=== PATIENT | female | born 1945 | race Caucasian/White ===

== ENCOUNTER 2017-01-26 23:00 | Inpatient (IN) | payer MEDICARE, OTHER ==
--- NOTE | ~2017-01-26 | HP ---
History And Physical [address] [place]. [address] NAME: CASIMIRO DESOUZA : 41 STATUS : REG ER PAT#: [id number] AGE: 71 ADM/REG DATE : 01/26/17 MR#: [id number] REPORT SERV DATE: 01/27/17 DICTATED BY: WARREN BILLINGSLEY DATE: 01/27/17 REPORT STATUS : Draft TRANSCRIBED BY: KAVYA DATE: 01/27/17 DATE OF ADMISSION: 01/26/2017 DICTATION ENDS HERE.... ANIVAL/KAVYA Warren Billingsley M.D. / [id number] CC: Lakisha Rhoades M.D.
--- NOTE | ~2017-01-26 | HP ---
History And Physical [place] [address] [place]. [address] NAME: CASIMIRO DESOUZA : 41 STATUS : ADM [place] PAT#: [id number] AGE: 71 ADM/REG DATE : 01/27/17 MR#: [id number] REPORT SERV DATE: 01/27/17 DICTATED BY: WARREN ARIZMENDI DATE: 01/27/17 REPORT STATUS : Draft TRANSCRIBED BY: KAVYA DATE: 01/27/17 DATE OF ADMISSION: 01/26/2017 CHIEF COMPLAINT: Falls. HISTORY OF PRESENT ILLNESS: The patient is a very pleasant, 71-year-old white female. She states that over the last 24 hours she has been generally weak. She had three falls, the last one she simply slid out of bed. She states her knees became sore and she was unable to rise independently. She states normally she cannot get off the floor. She called EMS several times. The first 2 times they helped her up. The third time they brought her to the hospital. She denies fevers or chills. She states she has had some moderate back pain since she fell the first time and also some upper back pain since she fell. She does suffer from fibromyalgia and chronic pain. She has not noticed dysuria. She has not had a significant cough although she has a slight cough which is new. She has had no chest pain. No real shortness of breath. She has chronic lower extremity edema from lymphedema which seems to be very similar to the past. She has had no nausea or vomiting. She does have intermittent diarrhea but that is also chronic. PAST MEDICAL HISTORY: 1. Atrial fibrillation with recent admission for CHF and AFib RVR. 2. Morbid obesity. 3. Hypertension. 4. Irritable bowel. 5. RONNELL, probable. 6. Lymphedema. 7. Hyperlipidemia. 8. Abnormal PPD. 9. Uterine cancer, history of hysterectomy. 10.Nephrolithiasis, asymptomatic. 11.GERD. 12.Colitis. 13.Fibromyalgia. 14.Depression. 15.Anxiety. 16.Chronic pain. 17.Raynaud's. SOCIAL HISTORY: She does not smoke or drink. She lives alone. She ambulates with a walker and lives independently. She is a retired nurse. She does not use tobacco or alcohol. FAMILY HISTORY: Mom had a CVA and dementia. Her father had prostate cancer. ALLERGIES: PENICILLIN, DEMEROL, SULFA, ULTRAM, AND ZOLOFT. SURGICAL HISTORY: 1. Partial colectomy. History And Physical [address] [address] NAME: CASIMIRO DESOUZA : 41 STATUS : ADM [place] PAT#: [id number] AGE: 71 ADM/REG DATE : 01/27/17 MR#: [id number] REPORT SERV DATE: 01/27/17 DICTATED BY: WARREN ARIZMENDI DATE: 01/27/17 REPORT STATUS : Draft TRANSCRIBED BY: KAVYA DATE: 01/27/17 2. Hysterectomy. 3. Oophorectomy. 4. Adhesiolysis. 5. Inguinal hernia repair. 6. Abdominal wall abscess surgery. REVIEW OF SYSTEMS: Full 10-point review of systems obtained. Pertinent positives already mentioned in the HPI. PHYSICAL EXAMINATION: VITAL SIGNS: Current sats are 98% on 2 L. BP 144/81, temperature 97.7, pulse 74, respiratory rate 24. GENERAL: Morbidly obese white female HEENT: Normocephalic, atraumatic. Throat is clear. NECK: Supple. HEART: Regular rate and rhythm. LUNGS: Grossly clear but diminished at the bases. ABDOMEN: Soft, nontender, nondistended. She has a couple of little blisters on her abdominal wall. She states she has been treated for this by rn outpatient surgery. These are improving. There is no surrounding erythema. Abdomen is otherwise soft, nontender, nondistended. EXTREMITIES: Warm and dry. She has 2+ pulses at the feet. She has swelling of the lower extremities which is a bit asymmetrical as she has had compression hose only pulled up to her ankles and so there is some more distal edema than proximal. SKIN: Otherwise intact. NEURO: She is alert. She is oriented to person, place, and time. She is generally weak in all four extremities but they are symmetrical. Speech is intact. Cranial nerves II through XII are intact. LABORATORY AND X-RAY: H and H 13 and 40, white count 9, platelets are 215. Coags, INR is 2. Chemistry panel is essentially normal. Troponin is 0.02. Urinalysis shows 16 white cells, 8 red cells, and moderate leukocyte esterase. Chest x-ray shows cardiomegaly and her lumbar spine CT shows what looks like compression deformity of T12 which is increased from 06/24. She has a compression deformity of L5 which is unchanged from prior studies. She also has moderate spinal stenosis at L3 through L5. EKG shows AFib, rate controlled with left axis deviation. ASSESSMENT/PLAN: 1. Urinary tract infection. This could have precipitated her weakness and falls. We will treat with Rocephin 1 g daily. Culture her urine. I went back through to see some previous cultures. She had Enterococcus faecium in 2015. It was only sensitive to vanc. Her previous E. coli was sensitive to cephalosporins. I think it is reasonable given that she only has 16 whites in her urine to cover her with Rocephin 1 g daily and follow up on cultures. She is afebrile and does not have a white count, does not look particularly ill, and then we will go from there. 2. Multiple falls likely secondary to generalized weakness and probable urinary tract History And Physical [address] [address] NAME: CASIMIRO DESOUZA : 41 STATUS : ADM [place] PAT#: [id number] AGE: 71 ADM/REG DATE : 01/27/17 MR#: [id number] REPORT SERV DATE: 01/27/17 DICTATED BY: WARREN ARIZMENDI DATE: 01/27/17 REPORT STATUS : Draft TRANSCRIBED BY: KAVYA DATE: 01/27/17 infection; however, she is prone to falls and required rehab after her last hospital stay. She was just here at the end of November with atrial fibrillation rapid ventricular rate and then went to rehab. She was only there for three weeks before she returned. I suspect her morbid obesity, her fibromyalgia, chronic pain, and use of medications is likely also contributing. We will have PT see her in consultation. She may again need a short rehab stay. 3. Back pain since falling. She does have multiple compression fractures. They do not appear to be acute except for the one at T11, may have had an increase in the amount of compression. I am going to do an MRI of her back to re-evaluate things and then we will go from there. We will provide pain medications. 4. Atrial fibrillation, currently rate controlled. We will continue her anticoagulation. I am still awaiting her pharmacy list and her home medication list. 5. History of obesity, needs weight loss. 6. Probable obstructive sleep apnea, still awaiting sleep study. Nocturnal O2 will be used. 7. Lymphedema, chronic. We will have better compression hose placed on the patient while she is here. 8. Fibromyalgia and chronic pain. Continue pain medications. 9. Deep venous thrombosis prophylaxis. She is already on warfarin. We will continue with daily PT, INRs. 10.Disposition. Pending above aforementioned plan and workup. ANIVAL/KAVYA Warren Arizmendi M.D. / [id number] CC: Hanna Antoine M.D.
--- NOTE | ~2017-01-26 | IDS ---
Interim Discharge Summary [facility] [address] [place]. [address] NAME: CASIMIRO DESOUZA : 41 STATUS : ADM IN [facility]#: [id number] AGE: 71 ADM/REG DATE : 01/28/17 MR#: [id number] REPORT SERV DATE: 02/02/17 DICTATED BY: GERONIMO VAUGHAN DATE: 02/01/17 REPORT STATUS : Draft TRANSCRIBED BY: MODL DATE: 02/01/17 ADMISSION DATE: 01/28/2017 DISCHARGE DATE: DIAGNOSES: 1. Acute T6 and T8 compression fracture. 2. Atrial fibrillation, normal sinus rhythm. On heparin GTT. Restart Coumadin after kyphoplasty. 3. History of congestive heart failure. 4. Hypertension. 5. Chronic lymphedema. 6. Multiple falls. Evaluated by PT, being evaluated by [facility] for rehab. Acute rehab on discharge. 7. Chronic pain. 8. Fibromyalgia. 9. Obstructive sleep apnea. Continue nocturnal oxygen. 10.Hypothyroidism. HOSPITAL COURSE: The patient was admitted for further management after a fall that the patient was shown to have acute T6 and T8 compression fracture. Pain was appropriately controlled. The patient was evaluated by Orthopedics. Further details per Ortho note. Recommended the kyphoplasty, which the patient was in agreement with. Coumadin was discontinued. Interventional Radiology wanted the patient to be off Coumadin five days, specifically prior to procedure. They have the patient scheduled for kyphoplasty on 02/03/2017. Once INR level was less than 2, heparin GTT was started for secondary prevention of atrial fibrillation. Further management per clinical course. CE/KAVYA Nick Gastelum MD / [id number] CC: Nick Gastelum MD
--- NOTE | ~2017-01-26 | CN ---
Consultation Report [facility] [address] [place]. [address] NAME: CASIMIRO DESOUZA : 41 STATUS : ADM [place] PAT#: [id number] AGE: 71 ADM/REG DATE : 01/27/17 MR#: [id number] REPORT SERV DATE: 01/29/17 DICTATED BY: PAOLA HURST II DATE: 01/29/17 REPORT STATUS : Draft TRANSCRIBED BY: KAVYA DATE: 01/29/17 DATE OF CONSULTATION: CHIEF COMPLAINT: Thoracic pain. HISTORY OF PRESENT ILLNESS: 71-year-old female who reports severe thoracic pain after falling recently. She denies any bowel or bladder changes or weakness in her legs. She is taking pain medications. She was admitted for pain control. PAST MEDICAL HISTORY: Reveals a history of breast biopsy, hysterectomy, kidney stones, history of tonsillectomy, history of hypertension, cholesterol, atrial fibrillation, hypothyroidism, bronchitis, COPD, asthma, history carpal tunnel, depression, and a history of irritable bowel syndrome, partial colectomy, and cholecystectomy, history of bilateral knee surgery, history of fibromyalgia. REVIEW OF SYSTEMS: Please see the ER triage sheet dated 01/26/2017, I have reviewed and agree with it. PHYSICAL EXAMINATION: GENERAL: Reveals a female, in no distress. She is awake, alert, and oriented. CHEST: Reveals no stridor on inspiration or expiration. CARDIOVASCULAR: Regular rate and rhythm when I palpate the radial pulse. ABDOMEN: Abdomen is obese. She has a positive percussion test in the thoracic area. PSYCHIATRIC: Reveals no agitation nor confusion. Imaging reveals T6 and T8 compression fracture. IMPRESSION AND PLAN: A 71-year-old female with morbid obesity who reports severe thoracic spine pain. She also has a history of fibromyalgia. I have given her the options of observation versus bracing versus kyphoplasty. She is not very ideal bracing candidate given her obesity and habitus. Regarding kyphoplasty, it is a reasonable option; however, she has taken her Coumadin recently. We will go ahead and have Physical Therapy evaluate her immobilizer as overall I believe the fractures are stable although painful. We will see how she does with therapy. We will go ahead and get a rehab consult as she lives alone. As needed, we will proceed with the kyphoplasty. JOSÉ MANUEL/KAVYA Paola Hurst II, M.D. / [id number]
--- NOTE | ~2017-01-26 | DS ---
Discharge Summary [place] [place]. [address] NAME: CASIMIRO DESOUZA : 41 STATUS : DIS IN PAT#: [id number] AGE: 71 ADM/REG DATE : 01/28/17 MR#: [id number] REPORT SERV DATE: 02/06/17 DICTATED BY: SUYAPA LUGO DATE: 02/05/17 REPORT STATUS : Draft TRANSCRIBED BY: MODEbony DATE: 02/05/17 ADMISSION DATE: 01/28/2017 DISCHARGE DATE: 02/05/2017 The patient was admitted to the Hospitalist Service. CONSULTANTS: German Rhoades M.D., Orthopedics. DISCHARGE DIAGNOSES: 1. Acute T6 and T8 compression fracture. 2. Atrial fibrillation, chronic. 3. Hypertension. 4. Chronic pain. 5. Fibromyalgia. 6. Obstructive sleep apnea with nocturnal oxygen. 7. Multiple falls. 8. Hypothyroidism. 9. Hyperlipidemia. 10.History of heart failure, diastolic, chronic. 11.Chronic diarrhea. 12.Chronic lymphedema. 13.Gastroesophageal reflux disease. 14.Morbid obesity. PROCEDURES: Kyphoplasty on 02/03/2017. IMAGING AND DIAGNOSTICS: 1. Portable chest x-ray 01/27/2017, revealed stable cardiomegaly, question left atrial enlargement. 2. CT of the lumbar spine without contrast revealed compression deformity of T12 increased from 06/24/2005, no evidence of acute fracture. A compression deformity of L5 unchanged from prior studies. A spinal canal stenosis at L3-L4 and L4-L5 that are mild to moderate. 3. 01/28/2017, thoracic spine CT without contrast revealed acute compression injuries T6, T8, evidence for old compression injury deformity at T11, T12. There are osteocytes at multiple levels. Central canal is intact. Posterior element are preserved. 4. MRI of the thoracic and lumbar spine 01/28/2017, revealed acute osteoporotic fractures of the superior endplate of L2 and inferior endplate of L4. No involvement of posterior elements at either level and no retropulsion. Degenerative findings with moderate central canal stenosis at L4-L5 and mild central canal stenosis at L3-L4, foraminal stenoses are present on the right at T12-L1, left L1-L2, L2-L3, L3-L4, and bilateral at L4-L5 and L5-S1, acute compression fracture at T6 and T8. 5. On 02/04/2017, a limited thoracic spine MRI showed T6 and T8 appear treated. No additional acute compression injuries are identified at this time. DISCHARGE LABORATORY STUDIES: Discharge Summary [facility] [address] [place] [address] NAME: CASIMIRO DESOUZA : 41 STATUS : DIS IN PAT#: [id number] AGE: 71 ADM/REG DATE : 01/28/17 MR#: [id number] REPORT SERV DATE: 02/06/17 DICTATED BY: SUYAPA LUGO DATE: 02/05/17 REPORT STATUS : Draft TRANSCRIBED BY: KAVYA DATE: 02/05/17 1. Basic metabolic panel reveals a sodium of 142, potassium 4.5, chloride 109, CO2 of 25, BUN 18, creatinine 0.78, GFR 75, glucose 105, calcium 8.0. 2. CBC reveals a white count of 7.7, RBC 3.88, hemoglobin 10.7, hematocrit 34.2, platelets 186,000, PT 14.6, INR 1.2. HISTORY OF PRESENT ILLNESS: For complete history, please review initial H and P by Dr. Shikha Billingsley and interim discharge summary by Dr. Nick Gastelum. Briefly, Ms. Desouza is a 71-year-old morbidly obese woman who presented to the hospital with complaints of severe back pain. Her initial imaging showed acute T6 and T8 compression fracture. She was admitted to the hospitalist for further evaluation and treatment. HOSPITAL COURSE: Again please see interim discharge summary by Dr. Gastelum. I initially saw the patient on 02/02/2017, for the first time. She was alert and oriented x3, in no acute distress. She complained of back pain, 6 to 7 out of 10. She relates concern about going to rehab at discharge. She was currently receiving heparin drip and awaiting kyphoplasty. Her heparin drip was discontinued on 02/02/2017, and she was scheduled for kyphoplasty on 02/03/2017. On 02/03/2017, she underwent a kyphoplasty, tolerated the procedure well. On 02/04/2017, she continued to complain of back pain, not really improved from the prior day, however, she described the pain that was not worth either. Dr. Ruvalcaba ordered a limited MRI of the thoracic spine. She did have this late in the afternoon and results are above. Her Coumadin was resumed on the evening of 02/04/2017. On 02/04/2017, Ms. Desouza was seen and examined in no acute distress, continues to have some intermittent back pain, which is slowly improving. She has no new complaints. She is ready to move on to the next level of care for further rehabilitation. PHYSICAL EXAMINATION: GENERAL: Alert and oriented x3. Moves all extremities. No focal defects. LUNGS: Clear to auscultation bilaterally. CV: S1, S2. Irregularly irregular rhythm. AFib, rate in the 70s. ABDOMEN: Soft, nontender. Active bowel sounds in all four quadrants. EXTREMITIES: With trace bilateral lower extremity edema. DISCHARGE LABS: Are as above. She should [facility] to [facility]. DISCHARGE INSTRUCTIONS: 1. Activity as tolerated. PT and OT eval and treat. 2. Diet: Cardiac, 4 g sodium. DISCHARGE MEDICATIONS: Are as follows: 1. Cholestyramine 8 g p.o. daily. 2. Cholestyramine 4 g p.o. at bedtime p.r.n. 3. Synthroid 25 mcg p.o. daily. 4. Niurka 90 mg p.o. q.48 hours. 5. Multivitamin 1 p.o. daily. 6. Nystatin powder topically to affected areas. 7. Protonix 40 mg p.o. with supper. Discharge Summary [address] [address] NAME: CASIMIRO DESOUZA : 41 STATUS : DIS IN PAT#: [id number] AGE: 71 ADM/REG DATE : 01/28/17 MR#: [id number] REPORT SERV DATE: 02/06/17 DICTATED BY: SUYAPA LUGO DATE: 02/05/17 REPORT STATUS : Draft TRANSCRIBED BY: KAVYA DATE: 02/05/17 8. Potassium chloride 20 mEq p.o. daily. 9. Pravastatin sodium 40 mg p.o. daily at bedtime. 10.Sotalol 80 mg p.o. b.i.d. 11.Tylenol Extended Release 650 mg caplet p.r.n. 12.Tylenol 650 mg suppository q.4 hours p.r.n. 13.Colace 100 mg p.o. daily p.r.n. constipation. 14.Benadryl cream to affected areas t.i.d., p.r.n. 15.Hydrocodone 7.5/325 one p.o. q.4 hours p.r.n. 16.Imodium 4 g p.o. b.i.d. p.r.n. diarrhea. 17.Nitroglycerin 0.4 mg sublingual p.r.n. chest pain. 18.Zofran 4 mg p.o. or sublingual q.4 hours p.r.n. 19.Zanaflex 4 mg p.o. t.i.d. p.r.n. 20.Oxycodone/APAP 10/325 one p.o. q.4 hours p.r.n. severe pain. 21.Lasix 40 mg p.o. daily. OTHER DISCHARGE INSTRUCTIONS: Include Ms. Desouza will follow up with her primary care provider, Dr. Lakisha Rhoades after discharge from [facility]. MT/KAVYA Evette Lugo [facility] / [id number] CC: Hanna Henriquez M.D.
[~2017-01-26 23:00] MED LIST: ACETAMINOPHEN; ACETAMINOPHEN PO; ALLEGRA-D24 HOUR PO; ALLEGRA180 PO; BETAP120 PO; BETAPACE80 PO; C25 PO; C5 PO; CEFT5 PO; CONSTULOSE PO; CORDARONE PO; DCN100 PO; DSS PO; DSS50 PO; ENULOSE PO; FERROUS SULF325 M1 PO; FLEX PO; IMOD PO; IRON PO; K-TABS10 MEQ PO; KDUR20 PO; KLOR-CON 1010 MEQ PO; KLOR-CON M2020 MEQ PO; L20 PO; L40 PO; MICRO-K10 MEQ PO; MULTIPLE VIT PO; MULTIVITAMI1 PO; NORCO1 TA1 PO; NYSTATPOW TOP; NYSTOP100000 MG TOP; PACERONE200 MG PO; PRAVACHOL40 MG PO; PREVALITE4 G1 PO; PROTONIX PO; QUESTRAN4 GM PO; REG5 PO; SAVELLA50 MG PO; SYN.025B PO; SYN.05 PO; SYN075 PO; SYN88 PO; THERGRANM PO; TYLENOL ARTH650 MG PO; V180SR PO; VERELAN180 MG PO; ZANAFLEX 4 MG TA4 MG PO
[2017-01-27 03:02] LABS: BASOPHILS 0.2 %; BASOPHILS ABSOLUTE 0.02 10/3/uL (0.0-0.16); EOSINOPHILS 0.8 %; EOSINOPHILS ABSOLUTE 0.07 10/3/uL (0.0-0.53); ER CBC TAT 0 Hrs 06 MinsNP; HEMATOCRIT 40.7 % (36.0-48.0); IMMATURE GRANULOCYTES 0.2 %; IMMATURE GRANULOCYTES ABSOLUTE 0.02 10/3/uL (0.0-0.11); LYMPHOCYTES 10.1 %; LYMPHOCYTES ABSOLUTE 0.92 10/3/uL (0.67-4.30); MANUAL DIFF NO %; MEAN CORPUS HGB CONC 31.9 g/dL (32.0-36.0); MEAN CORPUSCULAR HEMOGLOB 28.1 pg (26.0-34.0); MEAN CORPUSCULAR VOLUME 87.9 fL (80-100); MEAN PLATELET VOLUME 9.8 fL (9.2-13.0); MONOCYTES 10.4 %; MONOCYTES ABSOLUTE 0.94 10/3/uL (0.21-1.20); NEUTROPHILS 78.3 %; NEUTROPHILS ABSOLUTE 7.11 10/3/uL (2.02-8.40); PLATELET COUNT 215 10/3/uL (150-400); RBC DISTRIBUTION WIDTH 18.6 % (12.0-16.0); RED CELL COUNT 4.63 10/6/uL (4.0-5.6); WHITE BLOOD CELLS 9.1 10/3/uL (4.5-10.5)
[2017-01-27 03:10] LABS: PARTIAL THROMBO TIME 29.7 SEC (22.5-37.2); PROTIME (NOT ORD) 22.8 SEC (12.0-14.5)
[2017-01-27 03:20] LABS: CHEST PAIN PROFILE TAT 0 Hrs 24 Mins; CHLORIDE, SERUM 106 MMOL/L (96-112); CREATININE 0.91 MG/DL (0.55-1.02); GFR AFRICAN AMERICAN 73 ML/MIN (>=60); GFR NON AFRICAN AMERICAN 63 ML/MIN (>=60); GLUCOSE, SERUM 102 MG/DL (60-99); POTASSIUM, SERUM 4.2 MMOL/L (3.5-5.3); SODIUM, SERUM 140 MMOL/L (135-148); TROPONIN I <0.02 NG/ML (<0.05)
[2017-01-27 03:21] LABS: BUN (BLOOD UREA NITROGEN) 19 MG/DL (6-23); CALCIUM, SERUM 8.4 MG/DL (8.5-10.4); CO2 (CARBON DIOXIDE) 25 MMOL/L (24-34)
[2017-01-27 04:30] LABS: ASCORBIC ACID (UR NOT ORDER) NEG (NEG); BILIRUBIN, URINE NEGATIVE (NEG); ER URINALYSIS TAT 0 Hrs 00 Mins; KETONE, URINE NEGATIVE (NEG); LEUKOCYTE ESTERASE(NOT OR MOD (NEG); NITRITE (URINE) NEG (NEG); WBC (NOT ORDERED) (RFLEX) 16 (0-5)
[2017-01-27] MEDS ORDERED: PREVALITE4 G1 PO (09:16)
[2017-01-27] MEDS ORDERED: L40 PO (09:18)
[2017-01-27] MEDS ORDERED: SYN.025B PO (09:18)
[2017-01-27] MEDS ORDERED: BETAPACE80 PO (09:21)
[2017-01-27] MEDS ORDERED: C2 PO (09:22)
[2017-01-27] MEDS ORDERED: 8 HOUR650 MG PO (09:23)
[2017-01-27] MEDS ORDERED: P10 (09:34)
[2017-01-28 05:38] LABS: BASOPHILS 0.2 %; BASOPHILS ABSOLUTE 0.01 10/3/uL (0.0-0.16); EOSINOPHILS 0.8 %; EOSINOPHILS ABSOLUTE 0.05 10/3/uL (0.0-0.53); IMMATURE GRANULOCYTES 0.2 %; IMMATURE GRANULOCYTES ABSOLUTE 0.01 10/3/uL (0.0-0.11); LYMPHOCYTES 17.5 %; LYMPHOCYTES ABSOLUTE 1.13 10/3/uL (0.67-4.30); MEAN CORPUS HGB CONC 32.1 g/dL (32.0-36.0); MEAN CORPUSCULAR VOLUME 87.3 fL (80-100); MEAN PLATELET VOLUME 9.1 fL (9.2-13.0); MONOCYTES 12.4 %; NEUTROPHILS 68.9 %; NEUTROPHILS ABSOLUTE 4.46 10/3/uL (2.02-8.40); PLATELET COUNT 182 10/3/uL (150-400); RED CELL COUNT 3.93 10/6/uL (4.0-5.6); WHITE BLOOD CELLS 6.5 10/3/uL (4.5-10.5)
[2017-01-28 05:41] LABS: HEMATOCRIT 34.3 % (36.0-48.0); MANUAL DIFF NO %
[2017-01-28 05:45] LABS: INTERNATIONAL NORMAL RATI 2.2 UNITS (-); PROTIME (NOT ORD) 23.8 SEC (12.0-14.5)
[2017-01-28 05:58] LABS: BUN (BLOOD UREA NITROGEN) 16 MG/DL (6-23); CALCIUM, SERUM 8.3 MG/DL (8.5-10.4); CHLORIDE, SERUM 108 MMOL/L (96-112); CO2 (CARBON DIOXIDE) 26 MMOL/L (24-34); CREATININE 0.75 MG/DL (0.55-1.02); GFR AFRICAN AMERICAN 92 ML/MIN (>=60); GFR NON AFRICAN AMERICAN 79 ML/MIN (>=60); GLUCOSE, SERUM 98 MG/DL (60-99); POTASSIUM, SERUM 4.9 MMOL/L (3.5-5.3); SODIUM, SERUM 141 MMOL/L (135-148)
[2017-01-29 04:48] LABS: PROTIME (NOT ORD) 22.2 SEC (12.0-14.5)
[2017-01-30 04:25] LABS: BASOPHILS 0.3 %; BASOPHILS ABSOLUTE 0.02 10/3/uL (0.0-0.16); EOSINOPHILS 1.6 %; HEMOGLOBIN 11.9 g/dL (12.0-16.0); IMMATURE GRANULOCYTES 0.2 %; IMMATURE GRANULOCYTES ABSOLUTE 0.01 10/3/uL (0.0-0.11); LYMPHOCYTES 21.1 %; LYMPHOCYTES ABSOLUTE 1.36 10/3/uL (0.67-4.30); MEAN CORPUS HGB CONC 31.5 g/dL (32.0-36.0); MEAN CORPUSCULAR HEMOGLOB 27.3 pg (26.0-34.0); MEAN CORPUSCULAR VOLUME 86.7 fL (80-100); MEAN PLATELET VOLUME 9.2 fL (9.2-13.0); MONOCYTES 11.8 %; MONOCYTES ABSOLUTE 0.76 10/3/uL (0.21-1.20); NEUTROPHILS ABSOLUTE 4.19 10/3/uL (2.02-8.40); PLATELET COUNT 211 10/3/uL (150-400); RBC DISTRIBUTION WIDTH 18.7 % (12.0-16.0); RED CELL COUNT 4.36 10/6/uL (4.0-5.6); WHITE BLOOD CELLS 6.4 10/3/uL (4.5-10.5)
[2017-01-30 04:26] LABS: BUN (BLOOD UREA NITROGEN) 15 MG/DL (6-23); CALCIUM, SERUM 8.2 MG/DL (8.5-10.4); CHLORIDE, SERUM 104 MMOL/L (96-112); CO2 (CARBON DIOXIDE) 26 MMOL/L (24-34); CREATININE 0.76 MG/DL (0.55-1.02); GFR AFRICAN AMERICAN 90 ML/MIN (>=60); GFR NON AFRICAN AMERICAN 78 ML/MIN (>=60); GLUCOSE, SERUM 81 MG/DL (60-99); POTASSIUM, SERUM 4.5 MMOL/L (3.5-5.3); SODIUM, SERUM 139 MMOL/L (135-148)
[2017-01-30 04:28] LABS: HEMATOCRIT 37.8 % (36.0-48.0); MANUAL DIFF NO %
[2017-01-30 04:40] LABS: INTERNATIONAL NORMAL RATI 1.6 UNITS (-); PARTIAL THROMBO TIME 27.6 SEC (22.5-37.2)
[2017-01-30 04:42] LABS: PROTIME (NOT ORD) 18.5 SEC (12.0-14.5)
[2017-01-31 03:53] LABS: INTERNATIONAL NORMAL RATI 1.3 UNITS (-); PROTIME (NOT ORD) 16.5 SEC (12.0-14.5)
[2017-01-31 03:54] LABS: PARTIAL THROMBO TIME 73.5 SEC (22.5-37.2)
[2017-01-31 04:40] LABS: BASOPHILS 0.1 %; BASOPHILS ABSOLUTE 0.01 10/3/uL (0.0-0.16); EOSINOPHILS 2.5 %; EOSINOPHILS ABSOLUTE 0.18 10/3/uL (0.0-0.53); HEMATOCRIT 37.4 % (36.0-48.0); HEMOGLOBIN 12.2 g/dL (12.0-16.0); IMMATURE GRANULOCYTES 0.3 %; IMMATURE GRANULOCYTES ABSOLUTE 0.02 10/3/uL (0.0-0.11); LYMPHOCYTES 17.7 %; LYMPHOCYTES ABSOLUTE 1.26 10/3/uL (0.67-4.30); MANUAL DIFF NO %; MEAN CORPUS HGB CONC 32.6 g/dL (32.0-36.0); MEAN CORPUSCULAR HEMOGLOB 28.7 pg (26.0-34.0); MEAN PLATELET VOLUME 9.3 fL (9.2-13.0); MONOCYTES 11.9 %; MONOCYTES ABSOLUTE 0.85 10/3/uL (0.21-1.20); NEUTROPHILS 67.5 %; NEUTROPHILS ABSOLUTE 4.81 10/3/uL (2.02-8.40); PLATELET COUNT 204 10/3/uL (150-400); RBC DISTRIBUTION WIDTH 18.6 % (12.0-16.0); RED CELL COUNT 4.25 10/6/uL (4.0-5.6); WHITE BLOOD CELLS 7.1 10/3/uL (4.5-10.5)
[2017-02-01 04:38] LABS: INTERNATIONAL NORMAL RATI 1.2 UNITS (-); PARTIAL THROMBO TIME 73.8 SEC (22.5-37.2); PROTIME (NOT ORD) 14.7 SEC (12.0-14.5)
[2017-02-01 04:41] LABS: BASOPHILS 0.3 %; BASOPHILS ABSOLUTE 0.02 10/3/uL (0.0-0.16); EOSINOPHILS 2.1 %; EOSINOPHILS ABSOLUTE 0.17 10/3/uL (0.0-0.53); HEMATOCRIT 39.8 % (36.0-48.0); HEMOGLOBIN 12.5 g/dL (12.0-16.0); IMMATURE GRANULOCYTES 0.3 %; IMMATURE GRANULOCYTES ABSOLUTE 0.02 10/3/uL (0.0-0.11); LYMPHOCYTES 17.6 %; MEAN CORPUS HGB CONC 31.4 g/dL (32.0-36.0); MEAN CORPUSCULAR HEMOGLOB 27.5 pg (26.0-34.0); MEAN CORPUSCULAR VOLUME 87.7 fL (80-100); MEAN PLATELET VOLUME 9.7 fL (9.2-13.0); MONOCYTES 10.8 %; MONOCYTES ABSOLUTE 0.86 10/3/uL (0.21-1.20); NEUTROPHILS 68.9 %; PLATELET COUNT 217 10/3/uL (150-400); RBC DISTRIBUTION WIDTH 18.8 % (12.0-16.0); RED CELL COUNT 4.54 10/6/uL (4.0-5.6)
[2017-02-01 04:44] LABS: MANUAL DIFF NO %
[2017-02-02 05:31] LABS: BASOPHILS 0.3 %; BASOPHILS ABSOLUTE 0.02 10/3/uL (0.0-0.16); EOSINOPHILS 2.4 %; EOSINOPHILS ABSOLUTE 0.17 10/3/uL (0.0-0.53); HEMOGLOBIN 11.3 g/dL (12.0-16.0); IMMATURE GRANULOCYTES 0.3 %; IMMATURE GRANULOCYTES ABSOLUTE 0.02 10/3/uL (0.0-0.11); LYMPHOCYTES 20.4 %; LYMPHOCYTES ABSOLUTE 1.44 10/3/uL (0.67-4.30); MEAN CORPUS HGB CONC 31.6 g/dL (32.0-36.0); MEAN CORPUSCULAR HEMOGLOB 27.6 pg (26.0-34.0); MEAN CORPUSCULAR VOLUME 87.3 fL (80-100); MEAN PLATELET VOLUME 9.5 fL (9.2-13.0); MONOCYTES 11.6 %; MONOCYTES ABSOLUTE 0.82 10/3/uL (0.21-1.20); PLATELET COUNT 199 10/3/uL (150-400); WHITE BLOOD CELLS 7.1 10/3/uL (4.5-10.5)
[2017-02-02 05:33] LABS: HEMATOCRIT 35.8 % (36.0-48.0); MANUAL DIFF NO %
[2017-02-02 05:42] LABS: BUN (BLOOD UREA NITROGEN) 17 MG/DL (6-23); CHLORIDE, SERUM 105 MMOL/L (96-112); CO2 (CARBON DIOXIDE) 28 MMOL/L (24-34); CREATININE 0.76 MG/DL (0.55-1.02); GFR AFRICAN AMERICAN 90 ML/MIN (>=60); GFR NON AFRICAN AMERICAN 78 ML/MIN (>=60); POTASSIUM, SERUM 4.4 MMOL/L (3.5-5.3); SODIUM, SERUM 141 MMOL/L (135-148)
[2017-02-02 05:45] LABS: GLUCOSE, SERUM 106 MG/DL (60-99)
[2017-02-02 06:00] LABS: INTERNATIONAL NORMAL RATI 1.2 UNITS (-); PROTIME (NOT ORD) 15.3 SEC (12.0-14.5)
[2017-02-02 06:01] LABS: PARTIAL THROMBO TIME 78.4 SEC (22.5-37.2)
[2017-02-03 05:47] LABS: BASOPHILS 0.3 %; BASOPHILS ABSOLUTE 0.02 10/3/uL (0.0-0.16); EOSINOPHILS 2.3 %; EOSINOPHILS ABSOLUTE 0.16 10/3/uL (0.0-0.53); HEMATOCRIT 35.3 % (36.0-48.0); HEMOGLOBIN 11.1 g/dL (12.0-16.0); IMMATURE GRANULOCYTES 0.1 %; IMMATURE GRANULOCYTES ABSOLUTE 0.01 10/3/uL (0.0-0.11); LYMPHOCYTES 20.4 %; LYMPHOCYTES ABSOLUTE 1.43 10/3/uL (0.67-4.30); MEAN CORPUS HGB CONC 31.4 g/dL (32.0-36.0); MEAN CORPUSCULAR HEMOGLOB 27.9 pg (26.0-34.0); MEAN CORPUSCULAR VOLUME 88.7 fL (80-100); MEAN PLATELET VOLUME 9.4 fL (9.2-13.0); MONOCYTES 10.7 %; MONOCYTES ABSOLUTE 0.75 10/3/uL (0.21-1.20); NEUTROPHILS 66.2 %; NEUTROPHILS ABSOLUTE 4.65 10/3/uL (2.02-8.40); PLATELET COUNT 188 10/3/uL (150-400); RBC DISTRIBUTION WIDTH 18.9 % (12.0-16.0); RED CELL COUNT 3.98 10/6/uL (4.0-5.6)
[2017-02-03 05:48] LABS: MANUAL DIFF NO %
[2017-02-03 05:52] LABS: INTERNATIONAL NORMAL RATI 1.1 UNITS (-); PARTIAL THROMBO TIME 25.3 SEC (22.5-37.2); PROTIME (NOT ORD) 14.4 SEC (12.0-14.5)
[2017-02-03 05:59] LABS: BUN (BLOOD UREA NITROGEN) 20 MG/DL (6-23); CHLORIDE, SERUM 107 MMOL/L (96-112); CO2 (CARBON DIOXIDE) 26 MMOL/L (24-34); CREATININE 0.76 MG/DL (0.55-1.02); GFR AFRICAN AMERICAN 90 ML/MIN (>=60); GFR NON AFRICAN AMERICAN 78 ML/MIN (>=60); GLUCOSE, SERUM 86 MG/DL (60-99); POTASSIUM, SERUM 4.6 MMOL/L (3.5-5.3); SODIUM, SERUM 142 MMOL/L (135-148)
[2017-02-04 05:35] LABS: INTERNATIONAL NORMAL RATI 1.2 UNITS (-); PROTIME (NOT ORD) 14.7 SEC (12.0-14.5)
[2017-02-05 05:41] LABS: BASOPHILS 0.4 %; BASOPHILS ABSOLUTE 0.03 10/3/uL (0.0-0.16); EOSINOPHILS 2.6 %; HEMATOCRIT 34.2 % (36.0-48.0); HEMOGLOBIN 10.7 g/dL (12.0-16.0); IMMATURE GRANULOCYTES 0.4 %; IMMATURE GRANULOCYTES ABSOLUTE 0.03 10/3/uL (0.0-0.11); LYMPHOCYTES 15.6 %; LYMPHOCYTES ABSOLUTE 1.21 10/3/uL (0.67-4.30); MEAN CORPUS HGB CONC 31.3 g/dL (32.0-36.0); MEAN CORPUSCULAR HEMOGLOB 27.6 pg (26.0-34.0); MEAN CORPUSCULAR VOLUME 88.1 fL (80-100); MONOCYTES 16.4 %; MONOCYTES ABSOLUTE 1.27 10/3/uL (0.21-1.20); NEUTROPHILS 64.6 %; PLATELET COUNT 186 10/3/uL (150-400); RBC DISTRIBUTION WIDTH 18.6 % (12.0-16.0); RED CELL COUNT 3.88 10/6/uL (4.0-5.6); WHITE BLOOD CELLS 7.7 10/3/uL (4.5-10.5)
[2017-02-05 05:46] LABS: BUN (BLOOD UREA NITROGEN) 18 MG/DL (6-23); CHLORIDE, SERUM 109 MMOL/L (96-112); CO2 (CARBON DIOXIDE) 25 MMOL/L (24-34); CREATININE 0.78 MG/DL (0.55-1.02); GFR AFRICAN AMERICAN 87 ML/MIN (>=60); GFR NON AFRICAN AMERICAN 75 ML/MIN (>=60); POTASSIUM, SERUM 4.5 MMOL/L (3.5-5.3); SODIUM, SERUM 142 MMOL/L (135-148)
[2017-02-05 05:49] LABS: GLUCOSE, SERUM 105 MG/DL (60-99)
[2017-02-05 05:51] LABS: INTERNATIONAL NORMAL RATI 1.2 UNITS (-); MANUAL DIFF NO %; PROTIME (NOT ORD) 14.6 SEC (12.0-14.5)
[2017-05-19] MEDS ORDERED: PERCOCET 10/3251 TAB PO (03:05)
[2017-05-19] MEDS ORDERED: C2 PO (03:06)
[2017-05-19] MEDS ORDERED: NYSTATPOW TOP (03:06)
[2017-05-19] MEDS ORDERED: C1 PO (03:06)
[2017-05-19] MEDS ORDERED: PROTONIX PO (03:07)
[2017-05-19] MEDS ORDERED: PRAVACHOL40 MG PO (03:07)
[2017-05-19] MEDS ORDERED: ALBUTEROL0.083 % INH (03:08)
[2017-05-19] MEDS ORDERED: BUM2 PO (03:08)
[2017-05-19] MEDS ORDERED: TOPXL25 PO (03:09)
[2017-05-19] MEDS ORDERED: KLOR-CON 1010 MEQ PO (03:09)
[2017-05-19] MEDS ORDERED: SPIRO25 PO (03:36)
[2017-05-19] MEDS ORDERED: ZANAFLEX 4 MG TA4 MG PO (03:37)
[2017-05-19] MEDS ORDERED: NITROSTAT0.4 MG SL (03:38)
[2017-05-19] MEDS ORDERED: MELA3 PO (03:41)
[2017-05-19] MEDS ORDERED: DSS PO (03:41)
[2017-05-19] MEDS ORDERED: SYN.05 PO (03:41)
[2017-05-19] MEDS ORDERED: TUMSROLL PO (03:42)
[2017-05-19] MEDS ORDERED: ALLEGRA180 PO (03:43)
[2017-05-19] MEDS ORDERED: PREVALITE4 G1 PO (03:49)
== END 2017-02-05 19:21 | DRG 516 ==
LOC: ER 23:00 → CDU1 01-27 09:58 → 2SO 01-31 14:39
PROVIDERS: Internal Medicine; Nurse Practitioner; Nurse Practitioner Acute Care
PROC: 0PS43ZZ Reposition Thoracic Vertebra, Percutaneous Approach (ICD-10-PCS; principal; 2017-02-03)
PROC: 0PU43JZ Supplement Thoracic Vertebra with Synthetic Substitute, Percutaneous Approach (ICD-10-PCS; 2017-02-03)
DX: S22.069A Unspecified fracture of T7-T8 vertebra, initial encounter for closed fracture (principal); I50.32 Chronic diastolic (congestive) heart failure; N39.0 Urinary tract infection, site not specified; Z68.41 Body mass index [BMI] 40.0-44.9, adult; M80.88XA Other osteoporosis with current pathological fracture, vertebra(e), initial encounter for fracture; S22.059A Unspecified fracture of T5-T6 vertebra, initial encounter for closed fracture; I48.2 Chronic atrial fibrillation; E66.01 Morbid (severe) obesity due to excess calories; G47.33 Obstructive sleep apnea (adult) (pediatric); M79.7 Fibromyalgia; I89.0 Lymphedema, not elsewhere classified; G89.29 Other chronic pain; K58.9 Irritable bowel syndrome, unspecified; K21.9 Gastro-esophageal reflux disease without esophagitis; E03.9 Hypothyroidism, unspecified; F32.9 Major depressive disorder, single episode, unspecified; F41.9 Anxiety disorder, unspecified; I73.00 Raynaud's syndrome without gangrene; M48.06 Spinal stenosis, lumbar region; R19.7 Diarrhea, unspecified; W06.XXXA Fall from bed, initial encounter; Z99.81 Dependence on supplemental oxygen; Z87.442 Personal history of urinary calculi; Z85.42 Personal history of malignant neoplasm of other parts of uterus; Z91.81 History of falling; Y93.9 Activity, unspecified; Y92.003 Bedroom of unspecified non-institutional (private) residence as the place of occurrence of the external cause; Z98.890 Other specified postprocedural states; Z80.42 Family history of malignant neoplasm of prostate; Z88.0 Allergy status to penicillin; Z88.2 Allergy status to sulfonamides; Z88.5 Allergy status to narcotic agent; Z88.8 Allergy status to other drugs, medicaments and biological substances
CPT/HCPCS: 22513; 22515; 71010; 72128; 72131; 72146; 72146-52; 72148; 80048; 81001; 82652; 83735; 84484; 85025; 85610; 85730; 87086; 93005; 96374; 96376; 97110-GO; 97110-GP; 97162-GP; 97164-GP; 97166-GO; 97530-GP; 99152; 99153; 99285; A9270-GY; G8978-CK-GP; G8978-CL-GP; G8979-CJ-GP; G8980-CK-GP; G8987-CK-GO; G8988-CJ-GO; J1170; J2250; J2405; J3010; J3430; Q9967

== ENCOUNTER 2017-03-17 15:59 | Inpatient (IN) | payer MEDICARE, OTHER ==
--- NOTE | ~2017-03-17 | HP ---
History And Physical [id number] [place]. [address] NAME: CASIMIRO DESOUZA : 41 STATUS : ADM IN [facility]#: [id number] AGE: 71 ADM/REG DATE : 03/17/17 MR#: [id number] REPORT SERV DATE: 03/18/17 DICTATED BY: VICKY ANTHONY DATE: 03/17/17 REPORT STATUS : Draft TRANSCRIBED BY: KAVYA DATE: 03/17/17 DATE OF ADMISSION: 03/17/2017 CHIEF COMPLAINT: Shortness of breath and profound weakness. HISTORY OF PRESENT ILLNESS: The patient is a 71-year-old female with past medical history of hypothyroidism, diastolic heart failure, weakness, AFib, hypertension, sleep apnea, morbid obesity, chronic lymphedema, who presents after having recent discharge from [facility] for rehab after having recent falls and subsequent T6-T8 compression fracture. The patient reports that while she was in rehab, she was doing well the first two weeks, but after the second week, she started noticing weight gain and progressive dyspnea with activities. The patient was on a low-salt diet, but not fluid restriction. The patient then reports that by the time she was discharged, she noticed that she had gained approximately 50 pounds since her recent discharge from the hospital to discharge from the facility. The patient has had notable weight gain with shortness of breath and when she went home, was unable to perform her ADLs as she usually does. Additionally, feels like her heart rate was going fast. Symptoms were constant, moderate without pain or radiating symptoms. No acute diarrhea, nausea, vomiting, fever, chills, but has been fighting left breast cellulitis, although she does not recall what antibiotic she has been . The patient reports that shortness of breath has worsened by exertion and activity, still having greater than 45-degree orthopnea. No relieving symptoms. The patient is on chronic Lasix, but noticed fairly ineffective recently. In the emergency room, the patient has already diuresed greater than 2 L with first dose of Lasix IV. ADDITIONAL REVIEW OF SYSTEMS: A 10-point review of systems negative for that in HPI. GENERAL: No fevers or chills. EYES: No eye pain or visual changes. ENT: No sore throat or congestion. NEURO: No headache, but does have weakness. SKIN: Does have left breast rash. No bruising. RESPIRATORY: Does have shortness of breath with dyspnea on exertion. CV: No chest pain, but does have irregular heart rhythm and edema. GI: No nausea or vomiting. : No dysuria or hematuria. MUSCULOSKELETAL: Myalgias and arthralgias at baseline. ENDO: Chronic fatigue and no polyuria. HEME: No bleeding or bruising. IMMUNOLOGIC: No rhinorrhea. PSYCH: Mild anxiety. No confusion. PAST MEDICAL HISTORY: AFib, diastolic heart failure with chronic anticoagulation, morbid obesity, hypertension, irritable bowel, RONNELL, lymphedema, hyperlipidemia, abnormal PPD history, uterine cancer, history of hysterectomy, nephrolithiasis, GERD, colitis, fibromyalgia, depression, anxiety, Raynaud, chronic pain. SOCIAL HISTORY: No smoking or alcohol. Lives alone, ambulates in walker. Lives History And Physical [address] [address] NAME: CASIMIRO DESOUZA : 41 STATUS : ADM IN [facility]#: [id number] AGE: 71 ADM/REG DATE : 03/17/17 MR#: [id number] REPORT SERV DATE: 03/18/17 DICTATED BY: VICKY ANTHONY DATE: 03/17/17 REPORT STATUS : Draft TRANSCRIBED BY: KAVYA DATE: 03/17/17 independently, is retired nurse. Does not use tobacco or alcohol. Recently discharged from [facility] today, but was unable to perform ADLs at home. FAMILY HISTORY: CVA, dementia, prostate cancer. SURGICAL HISTORY: Partial colectomy, hysterectomy, oophorectomy, adhesiolysis, inguinal hernia repair, abdominal wall abscess surgery. ALLERGIES: PENICILLIN, DEMEROL, SULFA, ULTRAM, AND ZOLOFT. HOME MEDICATIONS: Prevalite, Niurka, Lasix, Synthroid, melatonin, multivitamin, Nitrostat, Zofran, Percocet, Protonix, K-Dur, sotalol, Zanaflex, antibiotic, and Coumadin. PHYSICAL EXAMINATION: VITAL SIGNS: Blood pressure 146/100, temperature 98.6, pulse 70, respirations down to 18; initially 28, and O2 saturations 98% on 2 L. GENERAL: Morbidly obese. EYES: No scleral icterus. EOMI. ENT: Large neck, difficult to appreciate JVD. RESPIRATORY: Bilateral decreased lung sorenson with rales. CV: Bilateral lymphedema with irregular heart rate with a 1:1 beat pulse ratio. Cap refill mildly decreased with Raynaud. GI: Soft, nontender, nondistended. : Guerrero. MUSCULOSKELETAL: Moves all extremities x4, mildly, but does have gross weakness. SKIN: Lymphedema with Raynaud's, bilateral 4+ edema. HEME: No bleeding or bruising. NEURO: Alert and oriented. Moves extremities, but weak. PSYCH: Appropriate mood, mildly anxious. LABORATORY DATA: BMP grossly within normal limits. Troponin negative. WBC 7.7, H and H 10.9 and 35.2, platelets 2247, INR 2.0. BNP 307.5. Urinalysis: Negative. CTA chest: Negative PE, cardiomegaly, fusiform aneurysmal changes with ascending aorta measuring 4.1, no dissection, enlarged main pulmonary artery 3.2 CT evidence of pulmonary hypertension. Left lower lobe atelectasis, stable insufficiency fractures. ASSESSMENT: 1. Diastolic heart failure. 2. Weakness with chronic debility. 3. Chronic pain, narcotic dependence. 4. Hypothyroidism. 5. Atrial fibrillation. 6. Hypertension. 7. Obstructive sleep apnea, O2 dependent. 8. Morbid obesity. 9. Chronic lymphedema. 10.Left breast cellulitis. History And Physical [address] [address] NAME: CASIMIRO DESOUZA : 41 STATUS : ADM IN [facility]#: [id number] AGE: 71 ADM/REG DATE : 03/17/17 MR#: [id number] REPORT SERV DATE: 03/18/17 DICTATED BY: VICKY ANTHONY DATE: 03/17/17 REPORT STATUS : Draft TRANSCRIBED BY: MODEbony DATE: 03/17/17 11.4.1 ascending thoracic aortic aneurysm. PLAN: 1. Diastolic heart failure exacerbation, mild. Order set initiated. Diuresing well in emergency room. Fluid restriction. Reports 50 pounds weight gain since discharge. Changed to IV diuresis, on sotalol. We will add OPAL inhibitor. Sees Dr. Ancelmo Rodriguez for AFib. Does have significant pulmonary hypertension; sleep apnea, O2 dependent; and morbid obesity as cofactors. 2. Weakness, chronic debility. Will require diuresis. PT/OT as tolerated. Discharge to [facility] today. 3. Chronic pain, narcotic dependence. Resume home medications. 4. Hypothyroidism, on replacement. 5. AFib, on Coumadin, sotalol. 6. Hypertension, on medications. 7. RONNELL, nocturnal O2. 8. Morbid obesity. 9. Chronic lymphedema. 10.Left breast cellulitis, unclear which antibiotics. The patient has been on multiple different antibiotics throughout the week. We will need to confirm daily antibiotic that the patient is using. Restart, reassess in a.m. We will defer to a.m. team for continue antibiotic course. 11.4.1 cm ascending thoracic aortic aneurysm. Will need monitoring per guidelines. All questions were answered. DDN/MODL Vicky Anthony MD / [id number] CC: MD Lakisha Pierre M.D.
--- NOTE | ~2017-03-17 | DS ---
Discharge Summary [address] [facility] [place]. [address] NAME: CASIMIRO DESOUZA : 41 STATUS : DIS IN PAT#: [id number] AGE: 71 ADM/REG DATE : 03/17/17 MR#: [id number] REPORT SERV DATE: 03/28/17 DICTATED BY: DATE: REPORT STATUS : Draft TRANSCRIBED BY: MODL DATE: 03/27/17 ADMISSION DATE: 03/17/2017 DISCHARGE DATE: 03/27/2017 CONSULTANTS: Included Cardiology - Dr. Garibay and Dr. Rodriguez, and Breast Surgery - Dr. Raymundo. DISCHARGE DIAGNOSES: 1. Acute exacerbation of chronic lymphedema. 2. Anasarca. 3. Chronic diastolic heart failure - no acute decompensation this admission. 4. Chronic atrial fibrillation - rate controlled, anticoagulated on Coumadin. 5. Hypothyroidism with elevated TSH, Synthroid increased this admission. For outpatient followup. 6. Abdominal pain and postprandial nausea of unclear etiology. Labs and imaging normal. 7. Probable obstructive sleep apnea - for outpatient sleep study. 8. Chronic pain syndrome and fibromyalgia. 9. Recent thoracic spine fractures and kyphoplasty -01/2017. 10.Chronic diarrhea due to history of colon resection. 11.History of uterine cancer. 12.Morbid obesity. 13.A 4.1-cm thoracic aortic aneurysm - for outpatient followup. 14.Left breast edema versus early malignancy, for outpatient followup. IMAGIN. CTA of the chest, 03/17/2017, shows no CTA evidence of pulmonary embolus. Cardiomegaly. Fusiform aneurysmal change of the ascending thoracic aorta measuring 4.1 cm. No dissection. Enlargement of the main pulmonary artery measuring 3.[address] evidence of pulmonary arterial hypertension. Subsegmental atelectasis, medial left lower lobe. Stable insufficiency fractures at T6, T8, T12 with interval vertebroplasty changes, T6 and T8. 2. Portable chest x-ray, 03/17/2017, shows stable cardiomegaly and cleared lungs. 3. Portable chest x-ray, 03/18/2017, shows shallow inspiration but no acute cardiopulmonary abnormality. 4. Abdominal ultrasound, 03/23/2017, status post removal of gallbladder. No biliary dilatation. Nonobstructing intrarenal calculi. Gas obscures visualization of the pancreas. 5. Diagnostic mammogram of the left breast on 03/25/2017, read as category 4, suspicious for malignancy with diffuse abnormal skin thickening and increased density in the anterior one-third of the left breast. PERTINENT LABS: BMP was normal throughout admission. Liver enzymes were normal. Lipase was normal. TSH 10.1 with free T4 of 1.6. BNP 307. White blood cell count was normal throughout admission. Hemoglobin is chronically low between 10 and 11.3. Platelet counts were normal. Discharge INR value 1.6. D-dimer 1.3. Urinalysis was hazy, negative for leukocyte esterase and nitrites 11 white blood cells and no bacteria. Subsequent urinary Discharge Summary [facility] [address] [place]. [address] NAME: CASIMIRO DESOUZA : 41 STATUS : DIS IN PAT#: [id number] AGE: 71 ADM/REG DATE : 03/17/17 MR#: [id number] REPORT SERV DATE: 03/28/17 DICTATED BY: DATE: REPORT STATUS : Draft TRANSCRIBED BY: MODL DATE: 03/27/17 culture showed no growth. BRIEF HISTORY: For full details, please see the previously dictated history of present illness by Dr. Tam Galan. This is a 71-year-old white female with extensive past medical history and recent hospitalization at [facility] in 01/2017 after a fall and compression fractures. She underwent kyphoplasty during the admission and was discharged to [facility] for physical rehabilitation. While she was there, she reported doing well for the first 2 weeks, but then started noticing weight gain and increasing heaviness in her lower extremities. She was having difficulty with physical therapy and ambulation. Nonetheless, she was discharged from [facility] to home, but was unable to physically maneuver within her apartment, and came back to the emergency department for re-evaluation. She did endorse some shortness of breath while in the emergency department, as well as orthopnea, but chest x-ray was clear of pulmonary edema, and there was no evidence of hypoxemia. The patient was admitted to the Hospitalist Service for further management of acute exacerbation of bilateral lower extremity lymphedema, and associated deconditioning. HOSPITAL COURSE: For details, please reference interim discharge summary by Dr. Mary Weston dictated on 03/23/2017. The patient was placed on IV diuretics with good resultant diuresis and improvement in her lower extremity edema. However, she continued to complain of abdominal pain and postprandial nausea during the hospitalization. She had no witnessed vomiting, and her appetite was good. She frequently consumed 100% of all her trays, and in fact complained that what was being provided on her trays was too restrictive. Symptoms were further investigated with comprehensive metabolic panel, lipase, abdominal ultrasound, urinalysis, and urine culture. Results of all were normal. Symptoms were managed supportively with the proton pump inhibitor that she takes at home, as well as the anti- emetic that she takes at home, and p.r.n. Mylicon. Cardiology followed her during the admission and adjusted medications for chronic atrial fibrillation and chronic diastolic heart failure. Again, there was no evidence of acute diastolic heart failure exacerbation this admission, rather her weight gain and shortness of breath are felt due to acute exacerbation of chronic lymphedema and deconditioning. The patient had recently been treated for a rash on her left breast but stated that her breast changes were persistent. On examination, there was noted inflammation and concern for possible peau d'orange skin changes or an early breast cancer. She underwent a diagnostic mammogram with results as above. Dr. Priscilla Raymundo was consulted to see the patient and felt that the breast changes were most likely due to edema in that the patient did not require a punch biopsy currently. She will plan to follow up with the patient after transfer to [facility] for further evaluation. The patient's TSH was found to be elevated this admission and her home dose of Synthroid was increased from 25 mcg to 50 mcg daily, and repeat thyroid function tests will need to be obtained within four to six weeks by primary care provider, Dr. Lakisha Rhoades. DISCHARGE DISPOSITION: The patient is being transferred to [facility] for additional physical rehabilitation, in the hopes that she will be able to return to independent ambulatory living. At [facility], she will need a basic metabolic panel within a week as Discharge Summary [address] [place]. [address] NAME: CASIMIRO DESOUZA : 41 STATUS : DIS IN PAT#: [id number] AGE: 71 ADM/REG DATE : 03/17/17 MR#: [id number] REPORT SERV DATE: 03/28/17 DICTATED BY: DATE: REPORT STATUS : Draft TRANSCRIBED BY: MODL DATE: 03/27/17 she has been newly initiated on spironolactone by Cardiology. She will also need PT and INR testing every 48 hours with Coumadin adjustments. Her discharge INR value is 1.6 with a goal of 2 to 3 for chronic atrial fibrillation. The patient is to adhere to a 1500-mL fluid restricted, cardiac diet at discharge, and she has no specific activity restrictions. She needs to follow up with perishable fruit inspector, Dr. Rodriguez, in one month and with primary care provider, Dr. Lakisha Rhoades, within 1 week following discharge from rehab. The patient also needs to follow up for the outpatient sleep study which was arranged following her last hospital discharge, for formal diagnoses of sleep apnea and evaluation of CPAP candidacy. Also noted at this admission is a 4.1-cm thoracic aortic aneurysm, which is felt to be a new diagnosis and will require outpatient monitoring. DISCHARGE MEDICATIONS: Include 1. Bumex 2 mg p.o. daily. 2. Prevalite 4 g p.o. at bedtime as needed and 8 g p.o. q.a.m. 3. Synthroid 50 mcg p.o. daily. 4. Niurka 180 mg p.o. every 48 hours. 5. Melatonin 3 mg p.o. at bedtime. 6. Multivitamin one tablet p.o. q.a.m. 7. Toprol-XL 12.5 mg p.o. daily. 8. Nystatin applied to groin folds q.8 hours as needed for yeast. 9. Protonix 40 mg p.o. q.a.c. supper. 10.Zanaflex 4 mg p.o. three times a day as needed for muscle spasms. 11.Spironolactone 25 mg p.o. daily - hold if systolic blood pressure less than or equal to 105. 12.Coumadin 3 mg p.o. every 6 p.m. 13.Albuterol 3 mL inhaled every 4 hours while awake as needed for shortness of breath. 14.Acetaminophen 650 mg p.o. every 4 hours as needed. 15.Imodium A-D 5 to 10 mL every 8 hours as needed. 16.Sublingual nitroglycerin 0.4 mg p.r.n. chest pain. 17.Zofran 4 mg p.o. four times a day as needed. 18.Percocet 10/325 mg p.o. every 4 hours as needed - 30 tablets were dispensed with no refills. Forty minutes was spent in completion of the discharge. LINO/KAVYA Ricky Stiles M.D. / [id number] Discharge Summary [address] [address] NAME: CASIMIRO DESOUZA : 41 STATUS : DIS IN PAT#: [id number] AGE: 71 ADM/REG DATE : 03/17/17 MR#: [id number] REPORT SERV DATE: 03/28/17 DICTATED BY: DATE: REPORT STATUS : Draft TRANSCRIBED BY: KAVYA DATE: 03/27/17 CC: Hanna Downing M.D. Allen E Atchley, M.D. [facility] Priscilla Raymundo M.D.
--- NOTE | ~2017-03-17 | IDS ---
Interim Discharge Summary [facility] [address] [place]. [address] NAME: CASIMIRO DESOUZA : 41 STATUS : ADM IN PAT#: [id number] AGE: 71 ADM/REG DATE : 03/17/17 MR#: [id number] REPORT SERV DATE: 03/23/17 DICTATED BY: COMPA NAM DATE: 03/23/17 REPORT STATUS : Draft TRANSCRIBED BY: MODEbony DATE: 03/23/17 ADMISSION DATE: 03/17/2017 DISCHARGE DATE: Date of transfer to my colleague will be 03/24/2017. Condition so far is stable. Diagnoses so far in this patient is: 1. Acute diastolic heart failure, resolved. 2. Chronic diastolic heart failure but with preserved ejection fraction of left ventricular ejection fraction of 60%. 3. Chronic atrial fibrillation for which the patient takes Coumadin on a regular basis. 4. Morbid obesity. 5. Hypertension. 6. Irritable bowel syndrome. 7. Chronic lymphedema in both lower extremities, hyperlipidemia. 8. History of uterine cancer, which are all stable at this time. BRIEF HOSPITAL COURSE: This patient is a 71-year-old white female patient, who was admitted on 03/17/2017 with essentially acute diastolic heart failure. The patient also has a history of other heart issues that include chronic atrial fibrillation for which she sees Dr. Rodriguez on a regular basis. The patient also is morbidly obese and has obstructive sleep apnea and obesity hypoventilation syndrome. She is oxygen-dependent. The patient also has chronic lymph edema. Also patient is dependent on chronic narcotic medication for her back pain. Brief hospital course, she was essentially admitted with signs and symptoms as described in history and physical exam. The patient was admitted, started on diuretics, and also her medications were continued. The patient's home medications were continued and with significant diuresis, her acute diastolic heart failure resolved. However, the patient complained of heartburn or GERD all the time. Hence, the patient was started on a PPI twice a day and per her request, she was started on Tums and also Gas-X. Despite all this, she continued to have heartburn and continued to complain of epigastric discomfort and acid reflux. An abdominal ultrasound that was done today on 03/23/2017, revealed no acute abnormalities. Her lipase has been normal. Her troponin I has been normal. Her gallbladder has been removed surgically. Hence, we really cannot find a reason for this heartburn and abdominal gassy-type pain that the patient is having. It could be secondary to excess gas because of constipation from chronic narcotic use. However, today when I was getting ready to discharge this patient home with home health (the patient has used up all her SNF days through Medicare as she has stayed in [facility] Interim Discharge Summary [address] [place]. [address] NAME: CASIMIRO DESOUZA : 41 STATUS : ADM IN PAT#: [id number] AGE: 71 ADM/REG DATE : 03/17/17 MR#: [id number] REPORT SERV DATE: 03/23/17 DICTATED BY: COMPA NAM DATE: 03/23/17 REPORT STATUS : Draft TRANSCRIBED BY: KAVYA DATE: 03/23/17 off and on.) Hence we had no choice, but to send her on home with Home Health. But as we were getting ready to send her on home, the patient felt a little weak and tired and when her blood pressure was taken this morning, it was extremely low around 70/40. Hence, the patient's blood pressure medications were all held this morning, and after that, her blood pressure nicely came back up. At this point, the patient said that she wanted to consult Dr. Rodriguez, her big data analytics lead so her medications could be adjusted. First of all, she is on Bumex 1 mg twice a day, sotalol 80 mg p.o. b.i.d., and also an OPAL inhibitor 5 mg once a day. At this time, the patient would like to see her big data analytics lead, Dr. Rodriguez to come by, consult and adjust medications and we will do so today. If her systolic blood pressure is less than 90, I have instructed p.r.n. not to give her any of her medications including Bumex and sotalol. We have also held her OPAL inhibitor. We will watch the patient and once Dr. Rodriguez will adjust her antihypertensives, she should be able to be discharged with home health. The patient has a lot of request/demands regarding home equipment that she can use at home as she states that she lives alone. The patient has never been , has no children, and has no next of kin or any relatives either close by. She only has a few friends, who take care of her and give her rights. So discharge may be an issue; however, as the patient has used up all her long-term facility days, I guess once PT and OT clears her, she may have to go home with Home Health. My colleague will be taking over care of this patient on 03/24/2017. LYNNETTE/KAVYA Compa Nam M.D. / [id number] CC: Hanna Downing M.D.
--- NOTE | ~2017-03-17 | CN ---
Consultation Report [facility] [address] [place]. [address] NAME: CASIMIRO DESOUZA : 41 STATUS : ADM IN PAT#: [id number] AGE: 71 ADM/REG DATE : 03/17/17 MR#: [id number] REPORT SERV DATE: 03/25/17 DICTATED BY: MICHELLE RAYMUNDO DATE: 03/25/17 REPORT STATUS : Draft TRANSCRIBED BY: MODEbony DATE: 03/25/17 CONSULTATION REPORT DATE OF CONSULTATION: 03/25/2017 CHIEF COMPLAINT: Left breast swelling and redness. HISTORY: The patient is a 71-year-old white female who had been in rehabilitation at one of the [facility] due to thoracic spine compression fractures and falls related to that. During her stay at [facility], she apparently developed marked fluid retention and gained about 50 pounds of weight. When she was discharged to home from [facility], she was unable to ambulate or take care of herself in any way and was thus admitted to the hospital at [facility] on 03/17/2017. She has problems with atrial fibrillation and is felt to have some degree of heart failure with marked fluid overload. Since admission, she has been diuresed with Bumex and is generally improving. Towards the end of her rehab stay, she noticed a rather sudden appearance of marked left breast swelling. There was associated skin edema and redness, but she denied any pain or fever associated with this. She did note abelino heaviness on the left side and none of these findings were present on the right. The patient is 0, para 0, and underwent a radical hysterectomy in the mid for uterine cancer. She also required postoperative radiation therapy. She developed marked lymphedema of both lower extremities several years subsequent to that operation. She said she has undergone two right breast biopsies and one left breast biopsy by Dr. Cabral in the distant past, but estimates this was greater than 10 years ago. She has annual mammography and had a normal mammogram performed at [facility] last year. The patient says that since the breast swelling and redness was noted, she has been treated with several rounds of antibiotics. She says the swelling has improved and the redness has diminished since her admission to the hospital. The patient said she is able to get out of bed to a limited extent, but complains of marked swelling of both lower extremities which has been chronic, but worse with the fluid overload. She does note that her left upper extremity is slightly loredo than her right, but denies any symptoms related to this. She had an intravenous catheter placed today in her left upper arm for venous access. [facility] and left breast ultrasound. Mammography shows increased density in the anterior left breast along with marked skin thickening. Ultrasound confirms these findings. This was read as BI-RADS 4, suspicious, due to the abnormal skin thickening and the possibility of inflammatory breast cancer. Consultation Report [facility] [address] [place]. [address] NAME: CASIMIRO DESOUZA : 41 STATUS : ADM IN PAT#: [id number] AGE: 71 ADM/REG DATE : 03/17/17 MR#: [id number] REPORT SERV DATE: 03/25/17 DICTATED BY: MICHELLE RAYMUNDO DATE: 03/25/17 REPORT STATUS : Draft TRANSCRIBED BY: KAVYA DATE: 03/25/17 PAST MEDICAL HISTORY: 1. Atrial fibrillation, recurrent, for which she is on chronic anticoagulation. 2. Diastolic heart failure. 3. Morbid obesity. 4. Hypertension. 5. Irritable bowel syndrome. 6. Chronic lower extremity lymphedema, poorly controlled. 7. Hyperlipidemia. 8. History of uterine cancer. 9. History of kidney stones. 10.History of reflux. 11.History of colitis. 12.Fibromyalgia. 13.Depression and anxiety. 14.Raynaud syndrome. 15.Chronic pain. SOCIAL HISTORY: The patient denies smoking and alcohol use. She lives in an apartment in [place] and prior to this recent set of events was independent, although using a walker. She is a retired nurse. ALLERGIES: PENICILLIN, DEMEROL, SULFA, ULTRAM, AND ZOLOFT. PAST SURGICAL HISTORY: 1. Colectomy. 2. Radical hysterectomy. 3. Lysis of adhesions. 4. Inguinal hernia repair. 5. Abdominal wall abscess drainage. HOME MEDICATIONS: Cholestyramine, Niurka, Lasix, Synthroid, melatonin, multivitamins, nitroglycerin, Zofran, oxycodone, Protonix, potassium chloride, sotalol, Zanaflex, and Coumadin 2 mg. FAMILY HISTORY: Remarkable for stroke, dementia, and prostate cancer. There is no family history of breast cancer. REVIEW OF SYSTEMS: The patient denies any hearing or visual problems. She denies any swallowing difficulties or other current GI complaints. She denies any current breathing problems, but says she had significant shortness of breath at the time of admission. She denies any chest pain. She complains of a rash that she had over her lower abdomen for which her regulatory compliance specialist recently prescribed steroids. She is no longer taking these. She has no particular urinary complaints and Guerrero catheter is in place. She complains of some degree of back pain, although she says kyphoplasty improved her pain. She has no breast symptoms other than Consultation Report [facility] [address] [place]. [address] NAME: CASIMIRO DESOUZA : 41 STATUS : ADM IN [facility]#: [id number] AGE: 71 ADM/REG DATE : 03/17/17 MR#: [id number] REPORT SERV DATE: 03/25/17 DICTATED BY: MICHELLE RAYMUNDO DATE: 03/25/17 REPORT STATUS : Draft TRANSCRIBED BY: KAVYA DATE: 03/25/17 those noted above. PHYSICAL EXAMINATION: GENERAL: Morbidly obese white female lying in bed. HEENT/NECK: Head and neck exam is unremarkable. Sclerae are nonicteric. CHEST: Fairly clear bilaterally. CARDIOVASCULAR: Irregularly irregular rhythm. BREAST: Shows asymmetry between the right and left breast with marked edema of the central left breast and some mild pinkness to the breast as well. Breasts are extremely large and pendulous. There are no palpable parenchymal breast masses. There is no nipple discharge. There is no palpable axillary adenopathy. ABDOMEN: Morbidly obese and soft. EXTREMITIES: Remarkable for massive lymphedema of both lower extremities. She has asymmetry between the left and right upper arms with more fullness of the left upper arm than the right. She has an IV catheter in her left upper arm, placed today. IMPRESSION: Marked left breast swelling and pinkness, which began while she was in the rehabilitation facility. The differential diagnosis includes cellulitis, which seems less likely given her absence of fever, pain, or any other systemic symptoms. This has not completely responded to antibiotics. Also in the differential diagnosis is inflammatory presentation of breast cancer. Imaging today shows no findings other than edema of the skin. There were no breast lesions and no adenopathy noted. Another possibility in the differential diagnosis is edema of the left breast related to her overall body edema. I think this is most likely the case for the patient. Her breast edema is improving as she is being diuresed. Unilateral breast edema can develop with overall body edema, but in addition she may have some type of venous inflow obstruction given her left upper arm swelling. Breast edema can be seen in this setting. Given her overall clinical picture, I think this is more likely an etiology of her breast swelling than inflammatory breast cancer. Since she is improving, I am in favor of continued observation of this area. We have discussed this in detail and she is in agreement with proceeding in this fashion. We will be planning to follow her with you. JAVON/KAVYA Michelle Raymundo M.D. / [id number] CC: Consultation Report [address] [address] NAME: CASIMIRO DESOUZA : 41 STATUS : ADM IN PAT#: [id number] AGE: 71 ADM/REG DATE : 03/17/17 MR#: [id number] REPORT SERV DATE: 03/25/17 DICTATED BY: MICHELLE RAYMUNDO DATE: 03/25/17 REPORT STATUS : Draft TRANSCRIBED BY: KAVYA DATE: 03/25/17 Ricky Stiles M.D. Lakisha Rhoades M.D.
--- NOTE | ~2017-03-17 | CN ---
Consultation Report [facility] [address] [place]. [address] NAME: CASIMIRO DESOUZA : 41 STATUS : ADM IN PAT#: [id number] AGE: 71 ADM/REG DATE : 03/17/17 MR#: [id number] REPORT SERV DATE: 03/23/17 DICTATED BY: ABIEL GARIBAY DATE: 03/23/17 REPORT STATUS : Draft TRANSCRIBED BY: MODL DATE: 03/23/17 CARDIOLOGY CONSULTATION DATE OF CONSULTATION: 03/17/2017 REASON FOR CONSULTATION: Atrial fibrillation and hypotension. HISTORY OF PRESENT ILLNESS: Ms. Desouza is a very pleasant 71-year-old female. We have been asked to see by the Hospitalist Service for management of the above conditions. The patient is known to our office and follows with Dr. Cesar Rodriguez primarily for history of atrial fibrillation. She has previously been managed with a rhythm control strategy with sotalol as well as anticoagulation with warfarin. She was admitted in 11/2016 with volume overload and underwent cardioversion, which was not successful in maintaining sinus rhythm. She has been continued on sotalol for rate control. She has been recovering from a fall resulted in thoracic spinal compression fractures, and while in rehab, she experienced progressive volume overload. She states that she has been in atrial fibrillation during the course of her stay in rehab. She estimates 50-pound weight gain since her last hospital discharge in 11/2016. She was admitted on 03/17/2017 for management of her volume overload state with presumptive diagnosis of decompensated diastolic heart failure. She has been treated with IV followed by p.o. diuretics and has had symptomatic improvement. Her atrial fibrillation has been rate controlled with sotalol, and lisinopril was added for blood pressure control. She was anticipating discharge early this week, but for the past 48 hours, has had intermittent episodes of low blood pressure. Systolic blood pressure documented in the 70s early this morning. The patient states that she has felt weak, but denies any specific dizziness or lightheadedness. Blood pressure since this episode has ranged between 105 and 130 systolic. She currently feels well and has no dizziness or lightheadedness. She further denies angina, dyspnea at rest, or subjective palpitations. PAST MEDICAL HISTORY: 1. Atrial fibrillation, on sotalol and Coumadin. 2. Hypertension. 3. Hyperlipidemia. 4. Hypothyroidism. 5. Lymphedema. 6. Morbid obesity. 7. Obstructive sleep apnea. 8. Thoracic aortic aneurysm 4.1 cm. 9. History of endometrial cancer, status post hysterectomy. 10.Gastroesophageal reflux disease. 11.Irritable bowel syndrome. MEDICATIONS: Home medications reviewed, notable for Lasix 40 q.a.m., sotalol 80 q.12, and warfarin 2 at bedtime. Consultation Report [address] [place]. [address] NAME: CASIMIRO DESOUZA : 41 STATUS : ADM IN PAT#: [id number] AGE: 71 ADM/REG DATE : 03/17/17 MR#: [id number] REPORT SERV DATE: 03/23/17 DICTATED BY: ABIEL GARIBAY DATE: 03/23/17 REPORT STATUS : Draft TRANSCRIBED BY: KAVYA DATE: 03/23/17 CURRENT MEDICATIONS: Include Bumex 1 mg b.i.d., lisinopril 5 daily, sotalol 80 b.i.d., and weight-based Coumadin. ALLERGIES: MULTIPLE ALLERGIES AND/OR INTOLERANCE DOCUMENTED PER MEDICAL RECORD INCLUDING AZITHROMYCIN, TRAMADOL, SERTRALINE, MEPERIDINE, PENICILLIN, SULFAMETHOXAZOLE, TRIMETHOPRIM, AND AMOXICILLIN. FAMILY HISTORY: Noncontributory. SOCIAL HISTORY: No tobacco, alcohol, or illicits. REVIEW OF SYSTEMS: Per HPI. Otherwise, negative. PHYSICAL EXAMINATION: VITAL SIGNS: Blood pressure is 106/56, heart rates in the 70s, 94% on room air. GENERAL: Obese female, sitting upright, in no apparent distress. HEENT: Sclerae are anicteric. Mucous membranes are moist. NECK: Supple. CARDIOVASCULAR: Heart rhythm is irregular. No murmurs were present. PULMONARY: Clear to auscultation bilaterally. ABDOMEN: Soft. EXTREMITIES: Pitting edema is present. LABORATORY DATA: Labs reviewed, notable for creatinine 1.1. BUN 28. WBC 9.7, hemoglobin 11.6, hematocrit 37.0. Troponin less than 0.02 x3. BNP ranging from 223 to 307. STUDIES: EKG from 03/18/2017, demonstrates atrial fibrillation, heart rate approximately 80, poor R-wave progression, and mild interventricular conduction delay. Telemetry demonstrates atrial fibrillation, heart rate ranging between 70 and 100. CTA of the chest performed on 03/17/2017, demonstrates no evidence of PE, cardiomegaly, a 4.1 cm thoracic aortic aneurysm without evidence of dissection, and pulmonary artery enlargement. IMPRESSION/RECOMMENDATIONS: 1. Atrial fibrillation, chronic. 2. Intermittent hypotension. 3. Lymphedema. 4. Heart failure, preserved ejection fraction, acute on chronic. Regarding the patient's transient low blood pressure, she is on several medications, which may be contributing including sotalol, lisinopril, and Bumex. Lisinopril is new and I recommend holding this for now. She does not appear to be dehydrated clinically, and I would continue Bumex. Regarding sotalol, this is primarily achieving rate control. It is possible that an alternative beta-solis may have less effect on blood pressure. I have Consultation Report [address] [place]. [address] NAME: CASIMIRO DESOUZA : 41 STATUS : ADM IN PAT#: [id number] AGE: 71 ADM/REG DATE : 03/17/17 MR#: [id number] REPORT SERV DATE: 03/23/17 DICTATED BY: ABIEL GARIBAY DATE: 03/23/17 REPORT STATUS : Draft TRANSCRIBED BY: MODL DATE: 03/23/17 discussed transitioning her to metoprolol and she is willing to try this. Ideally being in sinus rhythm may improve her volume overload state, but attempts to do this during her last admission were not successful. I would defer any repeat attempts and/or alternative antiarrhythmic to Dr. Rodriguez. I have reassured the patient that we will watch her overnight and discharge her when we feel that her blood pressure is stable and her symptoms are controlled. Thank you for the opportunity to be involved in the care of this patient. We will follow with you. CORBY/KAVYA Abiel Garibay MD / [id number] CC: Hanna Downing M.D.
[~2017-03-17 15:59] MED LIST changes: +8 HOUR650 MG PO; +C2 PO; +P10
[2017-03-17 17:22] LABS: BASOPHILS 0.3 %; BASOPHILS ABSOLUTE 0.02 10/3/uL (0.0-0.16); EOSINOPHILS 0.8 %; EOSINOPHILS ABSOLUTE 0.06 10/3/uL (0.0-0.53); HEMATOCRIT 35.2 % (36.0-48.0); HEMOGLOBIN 10.9 g/dL (12.0-16.0); IMMATURE GRANULOCYTES 0.1 %; IMMATURE GRANULOCYTES ABSOLUTE 0.01 10/3/uL (0.0-0.11); LYMPHOCYTES 7.4 %; LYMPHOCYTES ABSOLUTE 0.57 10/3/uL (0.67-4.30); MEAN CORPUSCULAR HEMOGLOB 26.5 pg (26.0-34.0); MEAN CORPUSCULAR VOLUME 85.6 fL (80-100); MONOCYTES 2.6 %; NEUTROPHILS 88.8 %; NEUTROPHILS ABSOLUTE 6.81 10/3/uL (2.02-8.40); RBC DISTRIBUTION WIDTH 16.6 % (12.0-16.0); RED CELL COUNT 4.11 10/6/uL (4.0-5.6); WHITE BLOOD CELLS 7.7 10/3/uL (4.5-10.5)
[2017-03-17 17:23] LABS: MANUAL DIFF NO %; PLATELET COUNT 247 10/3/uL (150-400)
[2017-03-17 17:31] LABS: PARTIAL THROMBO TIME 32.4 SEC (22.5-37.2)
[2017-03-17 17:38] LABS: BUN (BLOOD UREA NITROGEN) 20 MG/DL (6-23); CALCIUM, SERUM 8.4 MG/DL (8.5-10.4); CHEST PAIN PROFILE TAT 0 Hrs 20 Mins; CHLORIDE, SERUM 111 MMOL/L (96-112); CO2 (CARBON DIOXIDE) 25 MMOL/L (24-34); CREATININE 0.77 MG/DL (0.55-1.02); GFR AFRICAN AMERICAN 89 ML/MIN (>=60); GFR NON AFRICAN AMERICAN 77 ML/MIN (>=60); GLUCOSE, SERUM 96 MG/DL (60-99); POTASSIUM, SERUM 4.4 MMOL/L (3.5-5.3); SODIUM, SERUM 144 MMOL/L (135-148); TROPONIN I <0.02 NG/ML (<0.05)
[2017-03-17 17:40] LABS: PROTIME (NOT ORD) 22.9 SEC (12.0-14.5)
[2017-03-17 17:56] LABS: ASCORBIC ACID (UR NOT ORDER) NEG (NEG); BILIRUBIN, URINE NEGATIVE (NEG); KETONE, URINE NEGATIVE (NEG); LEUKOCYTE ESTERASE(NOT OR NEG (NEG); NITRITE (URINE) NEG (NEG); WBC (NOT ORDERED) (RFLEX) < 1 (0-5)
[2017-03-17] MEDS ORDERED: MELA3 PO (22:15)
[2017-03-17] MEDS ORDERED: BETAPACE80 PO (22:15)
[2017-03-17] MEDS ORDERED: C2 PO (22:15)
[2017-03-17] MEDS ORDERED: PROTONIX PO (22:15)
[2017-03-17] MEDS ORDERED: PERCOCET 10/3251 TAB PO (22:16)
[2017-03-17] MEDS ORDERED: ZANAFLEX 4 MG TA4 MG PO (22:16)
[2017-03-17] MEDS ORDERED: SYN.025B PO (22:16)
[2017-03-17] MEDS ORDERED: L40 PO (22:16)
[2017-03-17] MEDS ORDERED: ALLEGRA180 PO (22:17)
[2017-03-17] MEDS ORDERED: KDUR20 PO (22:17)
[2017-03-17] MEDS ORDERED: MULTIVIT/MIN PO (22:18)
[2017-03-17] MEDS ORDERED: PREVALITE4 G1 PO ×2 (22:18)
[2017-03-17] MEDS ORDERED: NITROSTAT0.4 MG SL (22:21)
[2017-03-17] MEDS ORDERED: ZOFRAN4 PO (22:21)
[2017-03-17] MEDS ORDERED: LEVAQUIN5T PO (22:36)
[2017-03-18 05:19] LABS: BASOPHILS 0 %; EOSINOPHILS 0 %; HEMATOCRIT 33.1 % (36.0-48.0); HEMOGLOBIN 10.5 g/dL (12.0-16.0); IMMATURE GRANULOCYTES 0.1 %; IMMATURE GRANULOCYTES ABSOLUTE 0.01 10/3/uL (0.0-0.11); LYMPHOCYTES 7.3 %; LYMPHOCYTES ABSOLUTE 0.49 10/3/uL (0.67-4.30); MEAN CORPUS HGB CONC 31.7 g/dL (32.0-36.0); MEAN CORPUSCULAR HEMOGLOB 26.6 pg (26.0-34.0); MONOCYTES 1.9 %; MONOCYTES ABSOLUTE 0.13 10/3/uL (0.21-1.20); NEUTROPHILS 90.7 %; NEUTROPHILS ABSOLUTE 6.11 10/3/uL (2.02-8.40); PLATELET COUNT 257 10/3/uL (150-400); RBC DISTRIBUTION WIDTH 16.1 % (12.0-16.0); RED CELL COUNT 3.94 10/6/uL (4.0-5.6); WHITE BLOOD CELLS 6.7 10/3/uL (4.5-10.5)
[2017-03-18 05:20] LABS: MANUAL DIFF NO %
[2017-03-18 05:25] LABS: BUN (BLOOD UREA NITROGEN) 21 MG/DL (6-23); CALCIUM, SERUM 8.2 MG/DL (8.5-10.4); CHLORIDE, SERUM 110 MMOL/L (96-112); CO2 (CARBON DIOXIDE) 26 MMOL/L (24-34); CREATININE 0.78 MG/DL (0.55-1.02); GFR AFRICAN AMERICAN 87 ML/MIN (>=60); GFR NON AFRICAN AMERICAN 75 ML/MIN (>=60); SODIUM, SERUM 145 MMOL/L (135-148)
[2017-03-18 05:26] LABS: GLUCOSE, SERUM 130 MG/DL (60-99)
[2017-03-18 05:33] LABS: INTERNATIONAL NORMAL RATI 1.9 UNITS (-); PROTIME (NOT ORD) 21.6 SEC (12.0-14.5)
[2017-03-19 05:59] LABS: BASOPHILS 0.4 %; BASOPHILS ABSOLUTE 0.03 10/3/uL (0.0-0.16); EOSINOPHILS 0.9 %; EOSINOPHILS ABSOLUTE 0.06 10/3/uL (0.0-0.53); HEMATOCRIT 31.5 % (36.0-48.0); HEMOGLOBIN 9.9 g/dL (12.0-16.0); IMMATURE GRANULOCYTES 0.3 %; IMMATURE GRANULOCYTES ABSOLUTE 0.02 10/3/uL (0.0-0.11); LYMPHOCYTES 17.4 %; LYMPHOCYTES ABSOLUTE 1.21 10/3/uL (0.67-4.30); MEAN CORPUS HGB CONC 31.4 g/dL (32.0-36.0); MEAN CORPUSCULAR HEMOGLOB 26.5 pg (26.0-34.0); MEAN CORPUSCULAR VOLUME 84.5 fL (80-100); MEAN PLATELET VOLUME 9.1 fL (9.2-13.0); MONOCYTES 14.3 %; NEUTROPHILS 66.7 %; NEUTROPHILS ABSOLUTE 4.65 10/3/uL (2.02-8.40); PLATELET COUNT 253 10/3/uL (150-400); RBC DISTRIBUTION WIDTH 16.7 % (12.0-16.0); RED CELL COUNT 3.73 10/6/uL (4.0-5.6)
[2017-03-19 06:00] LABS: MANUAL DIFF NO %
[2017-03-19 06:02] LABS: CALCIUM, SERUM 7.7 MG/DL (8.5-10.4); CHLORIDE, SERUM 109 MMOL/L (96-112); CO2 (CARBON DIOXIDE) 27 MMOL/L (24-34); CREATININE 1.01 MG/DL (0.55-1.02); GFR AFRICAN AMERICAN 64 ML/MIN (>=60); GFR NON AFRICAN AMERICAN 55 ML/MIN (>=60); SODIUM, SERUM 146 MMOL/L (135-148)
[2017-03-19 06:10] LABS: BUN (BLOOD UREA NITROGEN) 26 MG/DL (6-23); GLUCOSE, SERUM 91 MG/DL (60-99)
[2017-03-19 06:15] LABS: INTERNATIONAL NORMAL RATI 2.1 UNITS (-); PROTIME (NOT ORD) 23.5 SEC (12.0-14.5)
[2017-03-20 05:36] LABS: BASOPHILS 0.2 %; BASOPHILS ABSOLUTE 0.02 10/3/uL (0.0-0.16); EOSINOPHILS 2.1 %; HEMATOCRIT 36.7 % (36.0-48.0); HEMOGLOBIN 11.3 g/dL (12.0-16.0); IMMATURE GRANULOCYTES 0.2 %; IMMATURE GRANULOCYTES ABSOLUTE 0.02 10/3/uL (0.0-0.11); LYMPHOCYTES 14.9 %; LYMPHOCYTES ABSOLUTE 1.41 10/3/uL (0.67-4.30); MANUAL DIFF NO %; MEAN CORPUS HGB CONC 30.8 g/dL (32.0-36.0); MEAN CORPUSCULAR HEMOGLOB 26.3 pg (26.0-34.0); MEAN CORPUSCULAR VOLUME 85.3 fL (80-100); MEAN PLATELET VOLUME 9.3 fL (9.2-13.0); MONOCYTES 15.2 %; MONOCYTES ABSOLUTE 1.44 10/3/uL (0.21-1.20); NEUTROPHILS 67.4 %; NEUTROPHILS ABSOLUTE 6.38 10/3/uL (2.02-8.40); PLATELET COUNT 282 10/3/uL (150-400); RBC DISTRIBUTION WIDTH 16.7 % (12.0-16.0); WHITE BLOOD CELLS 9.5 10/3/uL (4.5-10.5)
[2017-03-20 05:40] LABS: INTERNATIONAL NORMAL RATI 1.8 UNITS (-); PROTIME (NOT ORD) 21.1 SEC (12.0-14.5)
[2017-03-20 05:41] LABS: BUN (BLOOD UREA NITROGEN) 29 MG/DL (6-23); CALCIUM, SERUM 7.9 MG/DL (8.5-10.4); CHLORIDE, SERUM 106 MMOL/L (96-112); CREATININE 1.14 MG/DL (0.55-1.02); GFR AFRICAN AMERICAN 55 ML/MIN (>=60); GFR NON AFRICAN AMERICAN 48 ML/MIN (>=60); GLUCOSE, SERUM 86 MG/DL (60-99); POTASSIUM, SERUM 4.1 MMOL/L (3.5-5.3); SODIUM, SERUM 145 MMOL/L (135-148)
[2017-03-20 06:14] LABS: CO2 (CARBON DIOXIDE) 32 MMOL/L (24-34)
[2017-03-21 06:33] LABS: BASOPHILS 0.2 %; BASOPHILS ABSOLUTE 0.02 10/3/uL (0.0-0.16); EOSINOPHILS 2.4 %; EOSINOPHILS ABSOLUTE 0.23 10/3/uL (0.0-0.53); HEMATOCRIT 34.4 % (36.0-48.0); HEMOGLOBIN 10.7 g/dL (12.0-16.0); IMMATURE GRANULOCYTES 0.3 %; IMMATURE GRANULOCYTES ABSOLUTE 0.03 10/3/uL (0.0-0.11); LYMPHOCYTES 13.4 %; LYMPHOCYTES ABSOLUTE 1.31 10/3/uL (0.67-4.30); MEAN CORPUS HGB CONC 31.1 g/dL (32.0-36.0); MEAN CORPUSCULAR HEMOGLOB 26.2 pg (26.0-34.0); MEAN CORPUSCULAR VOLUME 84.3 fL (80-100); MEAN PLATELET VOLUME 8.9 fL (9.2-13.0); MONOCYTES ABSOLUTE 1.27 10/3/uL (0.21-1.20); NEUTROPHILS 70.7 %; NEUTROPHILS ABSOLUTE 6.89 10/3/uL (2.02-8.40); PLATELET COUNT 241 10/3/uL (150-400); RBC DISTRIBUTION WIDTH 16.4 % (12.0-16.0); RED CELL COUNT 4.08 10/6/uL (4.0-5.6); WHITE BLOOD CELLS 9.8 10/3/uL (4.5-10.5)
[2017-03-21 06:35] LABS: MANUAL DIFF NO %
[2017-03-21 06:41] LABS: INTERNATIONAL NORMAL RATI 1.8 UNITS (-)
[2017-03-21 06:43] LABS: BUN (BLOOD UREA NITROGEN) 27 MG/DL (6-23); CALCIUM, SERUM 7.5 MG/DL (8.5-10.4); CHLORIDE, SERUM 103 MMOL/L (96-112); CO2 (CARBON DIOXIDE) 34 MMOL/L (24-34); CREATININE 1.03 MG/DL (0.55-1.02); GFR AFRICAN AMERICAN 62 ML/MIN (>=60); GFR NON AFRICAN AMERICAN 54 ML/MIN (>=60); GLUCOSE, SERUM 88 MG/DL (60-99); POTASSIUM, SERUM 3.8 MMOL/L (3.5-5.3); SODIUM, SERUM 142 MMOL/L (135-148)
[2017-03-22 04:32] LABS: INTERNATIONAL NORMAL RATI 1.8 UNITS (-); PROTIME (NOT ORD) 20.4 SEC (12.0-14.5)
[2017-03-22 13:27] LABS: TROPONIN I <0.02 NG/ML (<0.05)
[2017-03-23 07:00] LABS: BASOPHILS 0.3 %; BASOPHILS ABSOLUTE 0.03 10/3/uL (0.0-0.16); EOSINOPHILS 4.8 %; EOSINOPHILS ABSOLUTE 0.46 10/3/uL (0.0-0.53); HEMOGLOBIN 11.6 g/dL (12.0-16.0); IMMATURE GRANULOCYTES 0.2 %; IMMATURE GRANULOCYTES ABSOLUTE 0.02 10/3/uL (0.0-0.11); LYMPHOCYTES 11.1 %; LYMPHOCYTES ABSOLUTE 1.07 10/3/uL (0.67-4.30); MANUAL DIFF NO %; MEAN CORPUS HGB CONC 31.4 g/dL (32.0-36.0); MEAN CORPUSCULAR HEMOGLOB 26.4 pg (26.0-34.0); MEAN CORPUSCULAR VOLUME 84.3 fL (80-100); MEAN PLATELET VOLUME 9.2 fL (9.2-13.0); MONOCYTES 13.4 %; NEUTROPHILS 70.2 %; NEUTROPHILS ABSOLUTE 6.79 10/3/uL (2.02-8.40); PLATELET COUNT 214 10/3/uL (150-400); RBC DISTRIBUTION WIDTH 16.3 % (12.0-16.0); RED CELL COUNT 4.39 10/6/uL (4.0-5.6); WHITE BLOOD CELLS 9.7 10/3/uL (4.5-10.5)
[2017-03-23 07:05] LABS: INTERNATIONAL NORMAL RATI 1.9 UNITS (-); PROTIME (NOT ORD) 21.3 SEC (12.0-14.5)
[2017-03-23 07:11] LABS: BUN (BLOOD UREA NITROGEN) 28 MG/DL (6-23); CALCIUM, SERUM 7.9 MG/DL (8.5-10.4); CHLORIDE, SERUM 105 MMOL/L (96-112); CO2 (CARBON DIOXIDE) 34 MMOL/L (24-34); GFR AFRICAN AMERICAN 58 ML/MIN (>=60); GFR NON AFRICAN AMERICAN 50 ML/MIN (>=60); GLUCOSE, SERUM 89 MG/DL (60-99); POTASSIUM, SERUM 4.1 MMOL/L (3.5-5.3); SODIUM, SERUM 145 MMOL/L (135-148)
[2017-03-24 03:59] LABS: INTERNATIONAL NORMAL RATI 1.9 UNITS (-); PROTIME (NOT ORD) 21.6 SEC (12.0-14.5)
[2017-03-25 04:29] LABS: BASOPHILS 0.3 %; BASOPHILS ABSOLUTE 0.03 10/3/uL (0.0-0.16); EOSINOPHILS 4.3 %; EOSINOPHILS ABSOLUTE 0.37 10/3/uL (0.0-0.53); HEMOGLOBIN 10.9 g/dL (12.0-16.0); IMMATURE GRANULOCYTES 0.2 %; IMMATURE GRANULOCYTES ABSOLUTE 0.02 10/3/uL (0.0-0.11); LYMPHOCYTES 17.1 %; LYMPHOCYTES ABSOLUTE 1.48 10/3/uL (0.67-4.30); MANUAL DIFF NO %; MEAN CORPUS HGB CONC 31.1 g/dL (32.0-36.0); MEAN CORPUSCULAR HEMOGLOB 26.3 pg (26.0-34.0); MEAN CORPUSCULAR VOLUME 84.3 fL (80-100); MEAN PLATELET VOLUME 9.8 fL (9.2-13.0); MONOCYTES 12.7 %; NEUTROPHILS 65.4 %; NEUTROPHILS ABSOLUTE 5.67 10/3/uL (2.02-8.40); PLATELET COUNT 203 10/3/uL (150-400); RBC DISTRIBUTION WIDTH 16.2 % (12.0-16.0); RED CELL COUNT 4.15 10/6/uL (4.0-5.6); WHITE BLOOD CELLS 8.7 10/3/uL (4.5-10.5)
[2017-03-25 04:33] LABS: PROTIME (NOT ORD) 22.1 SEC (12.0-14.5)
[2017-03-25 04:49] LABS: ALBUMIN 2.5 G/DL (3.5-5.0); BUN (BLOOD UREA NITROGEN) 27 MG/DL (6-23); CALCIUM, SERUM 8.1 MG/DL (8.5-10.4); CHLORIDE, SERUM 105 MMOL/L (96-112); CO2 (CARBON DIOXIDE) 33 MMOL/L (24-34); CREATININE 1.05 MG/DL (0.55-1.02); GFR AFRICAN AMERICAN 61 ML/MIN (>=60); GFR NON AFRICAN AMERICAN 53 ML/MIN (>=60); PHOSPHORUS, SERUM 3.1 MG/DL (2.5-4.5); POTASSIUM, SERUM 3.9 MMOL/L (3.5-5.3); SODIUM, SERUM 144 MMOL/L (135-148)
[2017-03-25 04:51] LABS: GLUCOSE, SERUM 113 MG/DL (60-99)
[2017-03-25 16:01] LABS: ASCORBIC ACID (UR NOT ORDER) NEG (NEG); BILIRUBIN, URINE NEGATIVE (NEG); KETONE, URINE NEGATIVE (NEG); LEUKOCYTE ESTERASE(NOT OR MOD (NEG); WBC (NOT ORDERED) (RFLEX) 11 (0-5)
[2017-03-26 05:47] LABS: BASOPHILS 0.4 %; BASOPHILS ABSOLUTE 0.03 10/3/uL (0.0-0.16); EOSINOPHILS 5.1 %; EOSINOPHILS ABSOLUTE 0.35 10/3/uL (0.0-0.53); IMMATURE GRANULOCYTES 0.3 %; IMMATURE GRANULOCYTES ABSOLUTE 0.02 10/3/uL (0.0-0.11); LYMPHOCYTES ABSOLUTE 1.43 10/3/uL (0.67-4.30); MEAN CORPUS HGB CONC 32.2 g/dL (32.0-36.0); MEAN CORPUSCULAR HEMOGLOB 26.5 pg (26.0-34.0); MEAN CORPUSCULAR VOLUME 82.3 fL (80-100); MEAN PLATELET VOLUME 9.4 fL (9.2-13.0); MONOCYTES 14.8 %; MONOCYTES ABSOLUTE 1.01 10/3/uL (0.21-1.20); NEUTROPHILS 58.4 %; NEUTROPHILS ABSOLUTE 3.98 10/3/uL (2.02-8.40); PLATELET COUNT 183 10/3/uL (150-400); RBC DISTRIBUTION WIDTH 16.4 % (12.0-16.0); RED CELL COUNT 3.78 10/6/uL (4.0-5.6); WHITE BLOOD CELLS 6.8 10/3/uL (4.5-10.5)
[2017-03-26 05:49] LABS: HEMATOCRIT 31.1 % (36.0-48.0); INTERNATIONAL NORMAL RATI 1.9 UNITS (-); MANUAL DIFF NO %; PROTIME (NOT ORD) 21.8 SEC (12.0-14.5)
[2017-03-26 05:56] LABS: A/G RATIO 0.9 (0.7-1.9); ALBUMIN 2.5 G/DL (3.5-5.0); ALKALINE PHOSPHATASE 145 U/L (45-117); BUN (BLOOD UREA NITROGEN) 25 MG/DL (6-23); CALCIUM, SERUM 8.5 MG/DL (8.5-10.4); CHLORIDE, SERUM 104 MMOL/L (96-112); CO2 (CARBON DIOXIDE) 33 MMOL/L (24-34); CREATININE 0.93 MG/DL (0.55-1.02); GFR AFRICAN AMERICAN 71 ML/MIN (>=60); GFR NON AFRICAN AMERICAN 61 ML/MIN (>=60); GLOBULIN 2.9 G/DL (2.5-4.1); GLUCOSE, SERUM 90 MG/DL (60-99); SGOT(AST) 8 U/L (5-40); SGPT(ALT) 12 U/L (5-65); SODIUM, SERUM 142 MMOL/L (135-148); TOTAL BILIRUBIN 0.4 MG/DL (0-1.2); TOTAL PROTEIN 5.4 G/DL (6.0-8.5)
[2017-03-27 05:35] LABS: INTERNATIONAL NORMAL RATI 1.6 UNITS (-); PROTIME (NOT ORD) 18.8 SEC (12.0-14.5)
[2017-03-27 05:40] LABS: BUN (BLOOD UREA NITROGEN) 25 MG/DL (6-23); CALCIUM, SERUM 8.7 MG/DL (8.5-10.4); CHLORIDE, SERUM 103 MMOL/L (96-112); CO2 (CARBON DIOXIDE) 30 MMOL/L (24-34); CREATININE 1.07 MG/DL (0.55-1.02); GFR AFRICAN AMERICAN 60 ML/MIN (>=60); GFR NON AFRICAN AMERICAN 51 ML/MIN (>=60); GLUCOSE, SERUM 90 MG/DL (60-99); POTASSIUM, SERUM 4.2 MMOL/L (3.5-5.3); SODIUM, SERUM 140 MMOL/L (135-148)
[2017-05-19] MEDS ORDERED: PERCOCET 10/3251 TAB PO (03:05)
[2017-05-19] MEDS ORDERED: C2 PO (03:06)
[2017-05-19] MEDS ORDERED: C1 PO (03:06)
[2017-05-19] MEDS ORDERED: NYSTATPOW TOP (03:06)
[2017-05-19] MEDS ORDERED: PRAVACHOL40 MG PO (03:07)
[2017-05-19] MEDS ORDERED: PROTONIX PO (03:07)
[2017-05-19] MEDS ORDERED: ALBUTEROL0.083 % INH (03:08)
[2017-05-19] MEDS ORDERED: BUM2 PO (03:08)
[2017-05-19] MEDS ORDERED: KLOR-CON 1010 MEQ PO (03:09)
[2017-05-19] MEDS ORDERED: TOPXL25 PO (03:09)
[2017-05-19] MEDS ORDERED: SPIRO25 PO (03:36)
[2017-05-19] MEDS ORDERED: ZANAFLEX 4 MG TA4 MG PO (03:37)
[2017-05-19] MEDS ORDERED: NITROSTAT0.4 MG SL (03:38)
[2017-05-19] MEDS ORDERED: DSS PO (03:41)
[2017-05-19] MEDS ORDERED: MELA3 PO (03:41)
[2017-05-19] MEDS ORDERED: SYN.05 PO (03:41)
[2017-05-19] MEDS ORDERED: TUMSROLL PO (03:42)
[2017-05-19] MEDS ORDERED: ALLEGRA180 PO (03:43)
[2017-05-19] MEDS ORDERED: PREVALITE4 G1 PO (03:49)
== END 2017-03-27 15:06 | DRG 607 ==
LOC: ER 15:59 → 7NO 23:19
PROVIDERS: Emergency Medicine; Hospitalist; Internal Medicine Cardiovascular Disease; Student in an Organized Health Care Education/Training Program
PROC: 05H633Z Insertion of Infusion Device into Left Subclavian Vein, Percutaneous Approach (ICD-10-PCS; principal; 2017-03-25)
PROC: B5171ZA Fluoroscopy of Left Subclavian Vein using Low Osmolar Contrast, Guidance (ICD-10-PCS; 2017-03-25)
DX: I89.0 Lymphedema, not elsewhere classified (principal); I27.2 Other secondary pulmonary hypertension; I11.0 Hypertensive heart disease with heart failure; I71.2 Thoracic aortic aneurysm, without rupture; I50.32 Chronic diastolic (congestive) heart failure; F11.20 Opioid dependence, uncomplicated; Z68.43 Body mass index [BMI] 50.0-59.9, adult; J98.11 Atelectasis; Z99.81 Dependence on supplemental oxygen; I48.2 Chronic atrial fibrillation; N61.0 Mastitis without abscess; G47.33 Obstructive sleep apnea (adult) (pediatric); E66.01 Morbid (severe) obesity due to excess calories; K58.0 Irritable bowel syndrome with diarrhea; G89.4 Chronic pain syndrome; E78.5 Hyperlipidemia, unspecified; Z85.42 Personal history of malignant neoplasm of other parts of uterus; Z90.710 Acquired absence of both cervix and uterus; Z79.01 Long term (current) use of anticoagulants; Z87.442 Personal history of urinary calculi
CPT/HCPCS: 36569-52; 71010; 71275; 76642; 76700; 80048; 80053; 80069; 81001; 83690; 83735; 83880; 84100; 84439; 84443; 84484; 85025; 85379; 85610; 85730; 87086; 93005; 94640; 96374; 97110-GO; 97110-GP; 97116-GP; 97162-GP; 97165-GO; 97535-GO; 99285; A9270-GY; G0204; G8978-CL-GP; G8979-CK-GP; G8987-CJ-GO; G8988-CI-GO; J0780; J2405; J2550; Q9967